=== PATIENT | female | born 1945 | race Caucasian/White ===

== ENCOUNTER → 2019-12-06 | Outpatient (CLI) | payer MEDICARE, OTHER | END | disposition home or self-care (01) | LOC: LABWHC1 12:48 | PROVIDERS: ATTEND Family Medicine | DX: Z11.59 Encounter for screening for other viral diseases (principal) | CPT/HCPCS: U0003; C9803 ==

== ENCOUNTER 2024-03-11 15:00 | Emergency (ER) | payer MEDICARE, OTHER ==
--- NOTE | 2024-03-11 15:17 | ED ---
Headache HPI - General Source: patient, family, RN notes reviewed Mode of arrival: wheelchair Limitations: no limitations <Kady Brown - Last Filed: 03/11/24 15:16> - General Source: patient, family, RN notes reviewed, old records reviewed Mode of arrival: wheelchair Limitations: no limitations - History of Present Illness MD Complaint: headache, "migraine", other (Neck pain) -: days(s) Location: occipital Severity: moderate Severity scale (1-10): 6 Quality: aching Consistency: constant Improves With: nothing Worsens With: none <Kirit Tijerina - Last Filed: 03/12/24 18:44> - General Stated Complaint: L sided neck pain Time Seen by Provider: 03/11/24 15:16 - History of Present Illness Initial Comments: Quick note: 78-year-old female presented to ER for evaluation of a headache x 4 days. Patient states 4 days ago she started to have left-sided neck pain with radiation to her head. She states it is progressively getting worse. No injuries or traumas. She admits to nausea. No fevers or chills. No history of migraines. (Kady Brown) This is a 78-year-old female to the ER for evaluation of headache today headache and neck pain with anxiety (Kirit Tijerina) - Related Data Previous Rx's Medication Instructions Recorded diazePAM [Valium] 5 mg PO TID PRN 3 Days #9 tab 03/11/24 traMADol HCl [Ultram] 50 mg PO Q4HR PRN 3 Days #18 tab 03/11/24 Allergies Allergy/AdvReac Type Severity Reaction Status Date / Time ibuprofen Allergy Rash/Hives Verified 03/11/24 15:16 latex Allergy Unknown Verified 03/11/24 15:16 Review of Systems ROS Other: All systems not noted in ROS Statement are negative. <Kady Brown - Last Filed: 03/11/24 15:16> ROS Other: All systems not noted in ROS Statement are negative. <Kirit Tijerina - Last Filed: 03/12/24 18:44> ROS Statement: Those systems with pertinent positive or pertinent negative responses have been documented in the HPI. Past Medical History Past Medical History: Hypertension Additional Past Medical History / Comment(s): High Cholestrol History of Any Multi-Drug Resistant Organisms: None Reported Past Surgical History: Appendectomy, Cholecystectomy, Orthopedic Surgery Additional Past Surgical History / Comment(s): Back surgery - August ( 8 rods placed) Past Psychological History: No Psychological Hx Reported Smoking Status: Never smoker Past Alcohol Use History: Rare Past Drug Use History: None Reported <Kady Brown - Last Filed: 03/11/24 15:16> General Exam Limitations: no limitations <Kady Brown - Last Filed: 03/11/24 15:16> General appearance: alert, in no apparent distress Head exam: Present: atraumatic, normocephalic, normal inspection Eye exam: Present: normal appearance, PERRL, EOMI. Absent: scleral icterus, conjunctival injection, periorbital swelling ENT exam: Present: normal exam, mucous membranes moist Neck exam: Present: normal inspection. Absent: tenderness, meningismus, lymphadenopathy Respiratory exam: Present: normal lung sounds bilaterally. Absent: respiratory distress, wheezes, rales, rhonchi, stridor Cardiovascular Exam: Present: regular rate, normal rhythm, normal heart sounds. Absent: systolic murmur, diastolic murmur, rubs, gallop, clicks GI/Abdominal exam: Present: soft, normal bowel sounds. Absent: distended, tenderness, guarding, rebound, rigid Extremities exam: Present: normal inspection, full ROM, normal capillary refill. Absent: tenderness, pedal edema, joint swelling, calf tenderness Back exam: Present: normal inspection Neurological exam: Present: alert, oriented X3, CN II-XII intact Psychiatric exam: Present: normal affect, normal mood Skin exam: Present: warm, dry, intact, normal color. Absent: rash <Kirit Tijerina - Last Filed: 03/12/24 18:44> - General Exam Comments Initial Comments: Visual Physical Exam Vital signs reviewed General: Well-appearing, nontoxic, no acute distress. Head: Normocephalic, atraumatic Eyes: PERRLA, EOMI ENT: Airway patent Chest: Nonlabored breathing Skin: No visual rash, normal skin tone Neuro: Alert and oriented 3 Musculoskeletal: No gross abnormalities (Kady Brown) Course <Kirit Tijerina - Last Filed: 03/12/24 18:44> Vital Signs 03/11/24 03/11/24 15:11 19:36 Temperature 98.3 F 97.9 F Pulse Rate 80 68 Respiratory 16 18 Rate Blood Pressure 134/77 123/75 O2 Sat by Pulse 99 95 Oximetry - Reevaluation(s) Reevaluation #1: Medical records reviewed (Kirit Tijerina) Reevaluation #2: Patient symptoms improved (Kirit Tijerina) Reevaluation #3: Patient informed of results and questions answered (Kirit Tijerina) Reevaluation #4: Was pt. sent in by a medical professional or institution (, [facility], FILLING STATION LABORER, urgent care, hospital, or [facility]...) When possible be specific @ -no Did you speak to anyone other than the patient for history (EMS, parent, family, police, friend...)? What history was obtained from this source @ -no Did you review nursing and triage notes (agree or disagree)? Why? @ -agree Are old charts reviewed (outside hosp., previous admission, EMS record, old EKG, old radiological studies, urgent care reports/EKG's, [facility] records)? Report findings @ -yes Differential Diagnosis (chest pain, altered mental status, abdominal pain women, abdominal pain men, vaginal bleeding, weakness, fever, dyspnea, syncope, headache, dizziness, GI bleed, back pain, seizure, CVA, palpatations, mental health, musculoskeletal)? @ -prior EKG interpreted by me (3pts min.). @ -yes X-rays interpreted by me (1pt min.). @ -yes negative for acute disease CT interpreted by me (1pt min.). @ -no U/S interpreted by me (1pt. min.). @ -no What testing was considered but not performed or refused? (CT, X-rays, U/S, labs)? Why? @ -none What meds were considered but not given or refused? Why? @ -none Did you discuss the management of the patient with other professionals (professionals i.e. [facility] Bañuelos, FILLING STATION LAB[employer]ER, lab, RT, psych nurse, social media content manager, director of state, teacher, student liaison officer, binder caser)? Give summary @ -no Was smoking cessation discussed for >3mins.? @ -no Was critical care preformed (if so, how long)? @ -no Were there social determinants of health that impacted care today? How? (Homelessness, low income, unemployed, alcoholism, drug addiction, transportation, low edu. Level, literacy, decrease access to med. care, custodial, rehab)? @ -none Was there de-escalation of care discussed even if they declined (Discuss DNR or withdrawal of care, Hospice)? DNR status @ -no What co-morbidities impacted this encounter? (DM, HTN, Smoking, COPD, CAD, Cancer, CVA, ARF, Chemo, Hep., AIDS, mental health diagnosis, sleep apnea, morbid obesity)? @ -none Was patient admitted / discharged? Hospital course, mention meds given and route, prescriptions, significant lab abnormalities, going to OR and other pertinent info. @ - Undiagnosed new problem with uncertain prognosis? @ -no Drug Therapy requiring intensive monitoring for toxicity (Heparin, Nitro, Insulin, Cardizem)? @ -no Were any procedures done? @ -no Diagnosis/symptom? @ - Acute, or Chronic, or Acute on Chronic? @ -Acute Uncomplicated (without systemic symptoms) or Complicated (systemic symptoms)? @ -Complicated Side effects of treatment? @ -no Exacerbation, Progression, or Severe Exacerbation? @ -exacerbation Poses a threat to life or bodily function? How? (Chest pain, [place], NH, pneumonia, PE, COPD, DKA, ARF, appy, cholecystitis, CVA, Diverticulitis, Homicidal, Suicidal, threat to staff... and all critical care pts) @ -yes (Kirit Tijerina) Reevaluation #5: Differential Headache: Migraine, tension, cluster, carbon monoxide, central venous thrombosis, pension karma temporal arteritis, acute closure glaucoma, intercranial hemorrhage, mastoiditis, sinusitis, head injury, this is not meant to be an all-inclusive list. (Kirit Tijerina) Medical Decision Making <Kady Brown - Last Filed: 03/11/24 15:16> - Lab Data Result diagrams: 03/11/24 15:39 03/11/24 15:59 - Radiology Data Radiology results: report reviewed (CT brain C-spine negative for acute disease), image reviewed <Kirit Tijerina - Last Filed: 03/12/24 18:44> - Medical Decision Making I performed the quick note portion of this chart. Electronically signed by Kady Brown PA-C (Kady Brown) 78 female for headache neck pain anxiety, patient symptoms improved here in the ER and can be discharged home (Kirit Tijerina) - Lab Data Lab Results 03/11/24 03/11/24 Range/Units 15:39 15:59 WBC 10.9 H (3.8-10.6) k/uL RBC 3.46 L (3.80-5.40) m/uL Hgb 10.3 L (11.4-16.0) gm/dL Hct 31.8 L (34.0-46.0) % MCV 91.8 (80.0-100.0) fL MCH 29.7 (25.0-35.0) pg MCHC 32.4 (31.0-37.0) g/dL RDW 13.9 (11.5-15.5) % Plt Count 346 (150-450) k/uL MPV 7.7 Neutrophils % 82 % Lymphocytes % 11 % Monocytes % 6 % Eosinophils % 1 % Basophils % 0 % Neutrophils # 8.9 H (1.3-7.7) k/uL Lymphocytes # 1.2 (1.0-4.8) k/uL Monocytes # 0.7 (0-1.0) k/uL Eosinophils # 0.1 (0-0.7) k/uL Basophils # 0.0 (0-0.2) k/uL Sodium 138 (137-145) mmol/L Potassium 4.5 (3.5-5.1) mmol/L Chloride 107 (98-107) mmol/L Carbon Dioxide 24 (22-30) mmol/L Anion Gap 7 mmol/L BUN 27 H (7-17) mg/dL Creatinine 1.59 H (0.52-1.04) mg/dL Est GFR (CKD-EPI)AfAm 36 (>60 ml/min/1.73 sqM) Est GFR (CKD-EPI)NonAf 31 (>60 ml/min/1.73 sqM) Glucose 101 H (74-99) mg/dL Calcium 10.2 (8.4-10.2) mg/dL Total Bilirubin 0.9 (0.2-1.3) mg/dL AST 22 (14-36) U/L ALT 13 (4-34) U/L Alkaline Phosphatase 131 H (38-126) U/L Total Protein 7.3 (6.3-8.2) g/dL Albumin 4.0 (3.5-5.0) g/dL Disposition <Kady Brown - Last Filed: 03/11/24 15:16> Is patient prescribed a controlled substance at d/c from ED?: No Time of Disposition: 18:20 <Kirit Tijerina - Last Filed: 03/12/24 18:44> Clinical Impression: Strain of neck muscle Disposition: HOME SELF-CARE Condition: Good Instructions (If sedation given, give patient instructions): Cervical Strain (ED), Cervical Sprain (ED) Prescriptions: traMADol HCl [Ultram] 50 mg PO Q4HR PRN 3 Days #18 tab PRN Reason: Pain Control diazePAM [Valium] 5 mg PO TID PRN 3 Days #9 tab PRN Reason: Mild Spasms Referrals: Giovanni Estrada MD [Primary Care Provider] - 1-2 days Minor Najera DO [Doctor of Osteopathic Medicine] - 1-2 days
[2024-03-11 16:07] LABS: Basophils % (A) 0 %; Eosinophils # (A) 0.1 k/uL (0-0.7); Eosinophils % (A) 1 %; HCT 31.8 % (34.0-46.0); HGB 10.3 gm/dL (11.4-16.0); Lymphocytes # (A) 1.2 k/uL (1.0-4.8); Lymphocytes % (A) 11 %; MCH 29.7 pg (25.0-35.0); MCHC 32.4 g/dL (31.0-37.0); MCV 91.8 fL (80.0-100.0); Mean Platelet Volume 7.7; Monocytes # (A) 0.7 k/uL (0-1.0); Monocytes % (A) 6 %; Neutrophils # (A) 8.9 k/uL (1.3-7.7); Neutrophils % (A) 82 %; Platelet Count 346 k/uL (150-450); RBC 3.46 m/uL (3.80-5.40); RDW 13.9 % (11.5-15.5); WBC 10.9 k/uL (3.8-10.6)
--- NOTE | 2024-03-11 16:40 | CT ---
EXAMINATION TYPE: CT brain bernardo castillo DATE OF EXAM: 03/11/2024 COMPARISON: None CLINICAL INDICATION: Female, 78 years old with history of headache x 4days; PHH, HEADACHE/FAMILY HX A NUERYSM TECHNIQUE: CT scan of the head and cervical spine are performed without contrast. CT DLP: [address] CTDI: mGy Automated exposure control for dose reduction was used. Findings: Head CT: Ventricles, basal cisterns and sulci over convexities are mildly enlarged consistent with mild genera lized atrophy appropriate for the patient's age. There is no mass, mass effect or shift of midline st ructures. No abnormal density is seen throughout the brain parenchyma and there is no acute intra or extra-axia l hemorrhage. Posterior fossa including the brainstem, fourth ventricle and cerebellar pontine angles are grossly n ormal. The intraorbital contents appear normal and symmetric. Visualized paranasal sinuses are well aerated. CT cervical spine: Craniovertebral junction relationships and prevertebral soft tissues are normal. The cervical vertebral segments are normal in height and alignment and there is no fracture subluxati on. There are postsurgical changes of anterior metallic and interbody fusion of C4, C5, C6 and C7. The C2 -3 and C3-4 disks are well-preserved. The facet joints are intact. There is moderate osteoarthritic change of the vertebral joints in the m id and lower cervical spine. The bony cervical canal is widely patent and there is no bony encroachment of the neural foramina. The paraspinal soft tissues unremarkable. IMPRESSION: 1. Head CT: No acute bleed or mass effect. Mild age-appropriate atrophy. 2. CT cervical spine: No acute trauma. Cervical fusion from C4 through C7 [facility], , 03/11/2024 4:38 PM
[2024-03-11 18:12] LABS: ALT 13 U/L (4-34); AST 22 U/L (14-36); African American GFR (CKD) 36 (>60 ml/min/1.73 sqM); Alkaline Phosphatase 131 U/L (38-126); Anion Gap 7 mmol/L; Blood Urea Nitrogen 27 mg/dL (7-17); Calcium 10.2 mg/dL (8.4-10.2); Carbon Dioxide 24 mmol/L (22-30); Chloride 107 mmol/L (98-107); Glucose 101 mg/dL (74-99); Non-African American GFR(CKD) 31 (>60 ml/min/1.73 sqM); Potassium 4.5 mmol/L (3.5-5.1); Sodium 138 mmol/L (137-145); Total Bilirubin 0.9 mg/dL (0.2-1.3); Total Protein 7.3 g/dL (6.3-8.2)
[2024-03-11 19:37] VITALS: BP 123/75; PULSE 68; RESP 18; TEMP 97.9
[2024-03-11] MEDS: ACETAMINOPHEN TAB 500 MG TAB PO STA (19:38)
[2024-03-11] MEDS: diazePAM 5 MG TAB PO STA (19:39)
[2024-03-11] MEDS: ONDANSETRON 4 MG ODT STARTER PACK 2 TAB BTL PO STA (19:40)
[2024-03-11] MEDS: traMADol 50 MG TAB PO STA (19:40)
[2024-03-11] MEDS: traMADol 50 MG STARTER PACK 3 TAB BTL PO STA (19:41)
== END 2024-03-11 20:03 | disposition home or self-care (01) ==
LOC: EC 15:00
DX: S16.1XXA Strain of muscle, fascia and tendon at neck level, initial encounter (principal); X58.XXXA Exposure to other specified factors, initial encounter
CPT/HCPCS: 36415; 80053; 85025; 72125; 70450; 99284; S0119

== ENCOUNTER 2024-09-26 18:04 | Inpatient (IN) | payer MEDICARE, OTHER ==
[2024-09-26 18:25] LABS: Glucose,Whole Blood 83 mg/dL (70-110)
[2024-09-26] MEDS: SODIUM CHLORIDE 0.9% 500 ML 500 ML IV ONE (19:17)
--- NOTE | 2024-09-26 20:21 | XR ---
EXAMINATION TYPE: XR chest 2V DATE OF EXAM: 09/26/2024 8:14 PM COMPARISON: None TECHNIQUE: XR chest 2V Frontal and lateral views of the chest. CLINICAL INDICATION:Female, 79 years old with history of altered mental status; FINDINGS: Lungs/Pleura: There is no evidence of pleural effusion, focal consolidation, or pneumothorax. Bibasi lar linear atelectasis. Pulmonary vascularity: Unremarkable. Heart/mediastinum: Cardiomediastinal silhouette is unremarkable. Atherosclerotic calcifications are seen in the aorta. Musculoskeletal: Multiple level degenerative disc disease changes seen throughout the spine. Dextro s clerotic curvature of the thoracolumbar spine. Partial visualization of cervical and lumbar fusion swartz rdware. Other: Cholecystectomy clips noted in the right upper quadrant. IMPRESSION: Bibasilar linear atelectasis without evidence for focal consolidation. [facility], , 09/26/2024 8:19 PM
[2024-09-26 20:41] LABS: Bacteria,Urine Occasional /hpf; Bilirubin,Urine Negative (Negative); Blood,Urine Trace (Negative); Color,Urine Colorless; Glucose,Urine (UA) Negative (Negative); Hyaline Casts,Urine 3 /lpf (0-2); Ketones,Urine Negative (Negative); Leukocyte Esterase,Urine Large (Negative); Mucus,Urine Rare /hpf; Nitrite,Urine Negative (Negative); PH, Urine 5.0 (5.0-8.0); Protein,Urine Negative (Negative); RBC,Urine 15 /hpf (0-5); Specific Gravity,Urine 1.009 (1.001-1.035); Squamous Epithelial Cell,Urine 1 /hpf (0-4); Urobilinogen,Urine <2.0 mg/dL (<2.0); WBC,Urine 11 /hpf (0-5)
--- NOTE | 2024-09-26 20:41 | CT ---
EXAMINATION TYPE: CT brain wo con CT DLP: 1227.4 mGycm, Automated exposure control for dose reduction was used. DATE OF EXAM: 09/26/2024 8:27 PM COMPARISON: CT brain C-spine 03/11/2024 CLINICAL INDICATION:Female, 79 years old with history of Altered mental status, AMS TECHNIQUE: Brain: Multiple axial CT images of the brain were obtained without IV contrast. . Coronal and sagitta l reformats reviewed. FINDINGS: Brain: Extra-axial spaces: No abnormal extra-axial fluid collections. Ventricular system: Within normal limits Cerebral parenchyma: No acute intraparenchymal hemorrhage or mass effect. The vela-white junction is well differentiated. Cerebellum: Unremarkable. Mass effect: No evidence of midline shift. Intracranial vasculature: Atherosclerotic calcifications of the intracranial vessels. Soft tissues: Normal. Calvarium/osseous structures: No depressed skull fracture. Benign hyperostosis frontalis noted. Paranasal sinuses and mastoid air cells: Mastoid air cells are clear. Mucous retention cyst within th e right frontal sinus measuring 1.4 cm. Remaining paranasal sinuses are clear. Visualized orbits: Bilateral aphakia IMPRESSION: No acute intracranial process. [facility], , 09/26/2024 8:38 PM
[2024-09-26 20:51] LABS: Barbiturate Screen,Urine Not Detected (NotDetected); Benzodiazepines Screen,Urine Not Detected (NotDetected); Opiate Screen,Urine Not Detected (NotDetected); Oxycodone Screen, Urine Detected (NotDetected); Phencyclidine Screen,Urine Not Detected (NotDetected); Tricyclic Antidepressant,Urine Not Detected (NotDetected); Urn Cannabinoid Scrn Not Detected (NotDetected)
[2024-09-26 20:59] LABS: ALT 20 U/L (4-34); AST 40 U/L (14-36); Acetaminophen <10.0 ug/mL; African American GFR (CKD) 35 (>60 ml/min/1.73 sqM); Albumin 3.5 g/dL (3.5-5.0); Alkaline Phosphatase 111 U/L (38-126); Anion Gap 15 mmol/L; Blood Urea Nitrogen 43 mg/dL (7-17); Calcium 9.5 mg/dL (8.4-10.2); Carbon Dioxide 18 mmol/L (22-30); Chloride 105 mmol/L (98-107); Glucose 78 mg/dL (74-99); Non-African American GFR(CKD) 30 (>60 ml/min/1.73 sqM); Potassium 4.4 mmol/L (3.5-5.1); Salicylate <1.0 mg/dL; Sodium 138 mmol/L (137-145); Total Protein 6.1 g/dL (6.3-8.2)
[2024-09-26 21:05] LABS: Basophils # (A) 0.02 10*3/uL (0.00-0.10); Basophils % (A) 0.2 %; Eosinophils # (A) 0.01 10*3/uL (0.04-0.35); Eosinophils % (A) 0.1 %; HCT 31.2 % (37.2-46.3); HGB 10.4 g/dL (12.0-15.0); Lymphocytes # (A) 0.87 10*3/uL (0.90-5.00); Lymphocytes % (A) 9.6 %; MCH 31.5 pg (27.0-32.0); MCHC 33.3 g/dL (32.0-37.0); MCV 94.5 fL (80.0-97.0); Monocytes # (A) 0.54 10*3/uL (0.20-1.00); Monocytes % (A) 6.0 %; Neutrophils # (A) 7.58 10*3/uL (1.80-7.70); Neutrophils % (A) 83.7 %; Platelet Count 243 10*3/uL (140-440); RBC 3.30 10*6/uL (4.10-5.20); RDW 13.7 % (11.5-14.5); WBC 9.06 10*3/uL (4.50-10.00)
[2024-09-26 21:14] LABS: INR 1.0 (<1.2); Partial Thromboplastin Time 22.1 sec (22.0-30.0); Prothrombin Time 11.1 sec (10.0-12.5)
--- NOTE | 2024-09-26 21:30 | ED ---
General Adult HPI - General Chief complaint: Altered Mental Status Stated complaint: AMS Time Seen by Provider: 09/26/24 18:10 Source: patient Mode of arrival: EMS Limitations: no limitations - History of Present Illness Initial comments: 79-year-old female with past medical history of hypertension, high cholesterol, chronic back pain after surgery in August who presents to the emergency department with altered mental status. Daughter is at bedside and provides a history. States that the patient recently came to live with her. Today the patient seemed confused at home this afternoon. Daughter states that she spilled her pills all over the ground several times. Patient has had diarrhea over the past couple of days and has not been eating much. Patient did soil herself before coming into the emergency department. EMS found the patient on scene with a glucose of 50. They did give her an amp of dextrose which brought the patient's glucose up to 105. She was following commands and talking to EMS however upon arrival to our hospital the patient does not provide much history. She denies any chest pain or shortness of breath. No abdominal pain. No black or bloody stools. No other alleviating, precipitating or modifying factors - Related Data Home Medications Medication Instructions Recorded Confirmed Atorvastatin [Lipitor] 20 mg PO HS 09/26/24 09/26/24 Celecoxib [CeleBREX] 100 mg PO BID 09/26/24 09/26/24 Gabapentin [Neurontin] 200 mg PO DAILY 09/26/24 09/26/24 Levothyroxine Sodium 25 mcg PO DAILY 09/26/24 09/26/24 Oxybutynin ER [Ditropan XL] 20 mg PO DAILY 09/26/24 09/26/24 Pantoprazole [Protonix] 40 mg PO DAILY 09/26/24 09/26/24 QUEtiapine [SEROquel] 25 mg PO HS 09/26/24 09/26/24 hydroCHLOROthiazide [Hydrodiuril] 25 mg PO DAILY 09/26/24 09/26/24 lisinopriL [Zestril] 20 mg PO DAILY 09/26/24 09/26/24 tiZANidine [Zanaflex] 4 mg PO BID 09/26/24 09/26/24 Allergies Allergy/AdvReac Type Severity Reaction Status Date / Time ibuprofen Allergy Rash/Hives Verified 09/26/24 20:48 latex Allergy Unknown Verified 09/26/24 20:48 Review of Systems ROS Statement: Those systems with pertinent positive or pertinent negative responses have been documented in the HPI. ROS Other: All systems not noted in ROS Statement are negative. Past Medical History Past Medical History: Hypertension Additional Past Medical History / Comment(s): High Cholestrol History of Any Multi-Drug Resistant Organisms: None Reported Past Surgical History: Appendectomy, Cholecystectomy, Orthopedic Surgery Additional Past Surgical History / Comment(s): Back surgery - August ( 8 rods placed) Past Psychological History: No Psychological Hx Reported Smoking Status: Never smoker Past Alcohol Use History: Rare Past Drug Use History: None Reported General Exam Limitations: altered mental status General appearance: lethargic Head exam: Present: atraumatic, normocephalic, normal inspection Eye exam: Present: normal appearance, PERRL, EOMI. Absent: scleral icterus, conjunctival injection, periorbital swelling ENT exam: Present: mucous membranes moist Respiratory exam: Present: normal lung sounds bilaterally. Absent: respiratory distress, wheezes, rales, rhonchi, stridor Cardiovascular Exam: Present: regular rate, normal rhythm, normal heart sounds. Absent: systolic murmur, diastolic murmur, rubs, gallop, clicks GI/Abdominal exam: Present: soft, normal bowel sounds. Absent: distended, tenderness, guarding, rebound, rigid Neurological exam: Present: altered Psychiatric exam: Present: flat affect Course Vital Signs 09/26/24 09/26/24 09/26/24 18:08 20:27 22:00 Temperature 97.5 F L Pulse Rate 68 55 L 56 L Respiratory 17 12 15 Rate Blood Pressure 140/74 127/70 121/57 O2 Sat by Pulse 97 100 98 Oximetry 09/26/24 23:53 Temperature Pulse Rate 61 Respiratory 18 Rate Blood Pressure 101/81 O2 Sat by Pulse 97 Oximetry Medical Decision Making - Medical Decision Making Was pt. sent in by a medical professional or institution (, PA, TECHNICAL SALES REPRESENTATIVES, urgent care, hospital, or [facility]...) When possible be specific @ -No Did you speak to anyone other than the patient for history (EMS, parent, family, police, friend...)? What history was obtained from this source @ -Spoke with the daughter for history Did you review nursing and triage notes (agree or disagree)? Why? @ -I reviewed and agree with nursing and triage notes Were old charts reviewed (outside hosp., previous admission, EMS record, old EKG, old radiological studies, urgent care reports/EKG's, [facility] records)? Report findings @ -No old charts were reviewed Differential Diagnosis (chest pain, altered mental status, abdominal pain women, abdominal pain men, vaginal bleeding, weakness, fever, dyspnea, syncope, headache, dizziness, GI bleed, back pain, seizure, CVA, palpatations, mental health, musculoskeletal)? @ -Differential Altered Mental Status: Hypoglycemia, DKA, hypercapnia, ETOH, overdose, CO poisoning, trauma, myxedema coma, HTN encephalopathy, infection, encephalitis, psychosis, intercranial hemorrhage, hepatic encephalopathy, meningitis, CVA, this is not meant to be an all-inclusive list EKG interpreted by me (3pts min.). @ -Yes which demonstrates sinus rhythm with a rate of 62. OK interval 165. QRS 89. QTc of 447. No acute ST segment elevations or depressions X-rays interpreted by me (1pt min.). @ -Yes which demonstrates atelectasis CT interpreted by me (1pt min.). @ -Yes which does not demonstrate any acute process U/S interpreted by me (1pt. min.). @ -None done What testing was considered but not performed or refused? (CT, X-rays, U/S, labs)? Why? @ -None What meds were considered but not given or refused? Why? @ -None Did you discuss the management of the patient with other professionals (pro fessionals i.e. , PA, TECHNICAL SALES REPRESENTATIVES, lab, RT, psych nurse, social services counselor, product safety head, teacher, credit control officer, case resource manager)? Give summary @ -Spoke with Dr. Alonso for the admission Was smoking cessation discussed for >3mins.? @ -No Was critical care preformed (if so, how long)? @ -No Were there social determinants of health that impacted care today? How? (Homelessness, low income, unemployed, alcoholism, drug addiction, transportation, low edu. Level, literacy, decrease access to med. care, custodial, rehab)? @ -No Was there de-escalation of care discussed even if they declined (Discuss DNR or withdrawal of care, Hospice)? DNR status @ -No What co-morbidities impacted this encounter? (DM, HTN, Smoking, COPD, CAD, Cancer, CVA, ARF, Chemo, Hep., AIDS, mental health diagnosis, sleep apnea, morbid obesity)? @ -Chronic back pain Was patient admitted / discharged? Hospital course, mention meds given and route, prescriptions, significant lab abnormalities, going to OR and other pertinent info. @ -Upon arrival patient seen and evaluated in bed 22. Thorough history and physical exam was performed. Patient will not answer any questions however she does mildly arouse to painful stimuli. Patient does flinch when I attempt to look into her eyes. She also pushes me away with her left hand when attempting to do strength testing. IV is established. Laboratory studies are conducted. Twelve-lead EKG was performed. Laboratory studies do reveal a UTI. Patient was given a dose of Rocephin. She was monitored in the emergency department for several hours and does have improvement in her mentation. I am concerned that the patient may have overdosed on some of her medications. At this time the patient will be admitted to Dr. Alonso. She will be placed on antibiotics. I will hold several of her sedating medications. Spoke with Dr. Alonso for the admission Undiagnosed new problem with uncertain prognosis? @ -No Drug Therapy requiring intensive monitoring for toxicity (Heparin, Nitro, Insulin, Cardizem)? @ -No Were any procedures done? @ -No Diagnosis/symptom? @ -Acute encephalopathy, acute UTI, possible medication overdose Acute, or Chronic, or Acute on Chronic? @ -Acute Uncomplicated (without systemic symptoms) or Complicated (systemic symptoms)? @ -Complicated Side effects of treatment? @ -No Exacerbation, Progression, or Severe Exacerbation? @ -No Poses a threat to life or bodily function? How? (Chest pain, [place], [place], pneumonia, PE, COPD, DKA, ARF, appy, cholecystitis, CVA, Diverticulitis, Homicidal, Suicidal, threat to staff... and all critical care pts) @ -No - Lab Data Result diagrams: 09/26/24 20:49 09/26/24 19:14 Lab Results 09/26/24 09/26/24 09/26/24 Range/Units 18:20 19:14 19:14 WBC (4.50-10.00) 10*3/uL RBC (4.10-5.20) 10*6/uL Hgb (12.0-15.0) g/dL Hct (37.2-46.3) % MCV (80.0-97.0) fL MCH (27.0-32.0) pg MCHC (32.0-37.0) g/dL Plt Count (140-440) 10*3/uL MPV (9.5-12.2) fL Immature Gran % (Auto) % Neutrophils % % Lymphocytes % % Monocytes % % Eosinophils % % Basophils % % Immature Gran # (0.00-0.04) 10*3/uL Neutrophils # (1.80-7.70) 10*3/uL Lymphocytes # (0.90-5.00) 10*3/uL Monocytes # (0.20-1.00) 10*3/uL Eosinophils # (0.04-0.35) 10*3/uL Basophils # (0.00-0.10) 10*3/uL PT (10.0-12.5) sec INR (<1.2) APTT (22.0-30.0) sec Sodium 138 (137-145) mmol/L Potassium 4.4 (3.5-5.1) mmol/L Chloride 105 (98-107) mmol/L Carbon Dioxide 18 L (22-30) mmol/L Anion Gap 15 mmol/L BUN 43 H (7-17) mg/dL Creatinine 1.61 H (0.52-1.04) mg/dL Est GFR (CKD-EPI)AfAm 35 (>60 ml/min/1.73 sqM) Est GFR (CKD-EPI)NonAf 30 (>60 ml/min/1.73 sqM) Glucose 78 (74-99) mg/dL POC Glucose (mg/dL) 83 (70-110) mg/dL POC Glu Yard Inspector ID Marinozzchyna Lelo Calcium 9.5 (8.4-10.2) mg/dL Total Bilirubin 0.5 (0.2-1.3) mg/dL AST 40 H (14-36) U/L ALT 20 (4-34) U/L Alkaline Phosphatase 111 (38-126) U/L Troponin I 0.023 (0.000-0.034) ng/mL Total Protein 6.1 L (6.3-8.2) g/dL Albumin 3.5 (3.5-5.0) g/dL TSH 0.921 (0.465-4.680) mIU/L Urine Color Urine Appearance (Clear) Urine pH (5.0-8.0) Ur Specific [place] (1.001-1.035) Urine Protein (Negative) Urine Glucose (UA) (Negative) Urine Ketones (Negative) Urine Blood (Negative) Urine Nitrite (Negative) Urine Bilirubin (Negative) Urine Urobilinogen (<2.0) mg/dL Ur Leukocyte Esterase (Negative) Urine RBC (0-5) /hpf Urine WBC (0-5) /hpf Ur Squamous Epith Cells (0-4) /hpf Urine Bacteria (None) /hpf Hyaline Casts (0-2) /lpf Urine Mucus (None) /hpf Salicylates <1.0 mg/dL Urine Opiates Screen (NotDetected) Ur Oxycodone Screen (NotDetected) Urine Methadone Screen (NotDetected) Acetaminophen <10.0 ug/mL Ur Barbiturates Screen (NotDetected) U Tricyclic Antidepress (NotDetected) Ur Phencyclidine Scrn (NotDetected) Ur Amphetamines Screen (NotDetected) U Methamphetamines Scrn (NotDetected) U Benzodiazepines Scrn (NotDetected) Urine Cocaine Screen (NotDetected) U Marijuana (THC) Screen (NotDetected) Serum Alcohol <10 mg/dL 09/26/24 09/26/24 09/26/24 Range/Units 20:03 20:03 20:49 WBC 9.06 (4.50-10.00) 10*3/uL RBC 3.30 L (4.10-5.20) 10*6/uL Hgb 10.4 L (12.0-15.0) g/dL Hct 31.2 L (37.2-46.3) % MCV 94.5 (80.0-97.0) fL MCH 31.5 (27.0-32.0) pg MCHC 33.3 (32.0-37.0) g/dL Plt Count 243 (140-440) 10*3/uL MPV 9.9 (9.5-12.2) fL Immature Gran % (Auto) 0.4 % Neutrophils % 83.7 % Lymphocytes % 9.6 % Monocytes % 6.0 % Eosinophils % 0.1 % Basophils % 0.2 % Immature Gran # 0.04 (0.00-0.04) 10*3/uL Neutrophils # 7.58 (1.80-7.70) 10*3/uL Lymphocytes # 0.87 L (0.90-5.00) 10*3/uL Monocytes # 0.54 (0.20-1.00) 10*3/uL Eosinophils # 0.01 L (0.04-0.35) 10*3/uL Basophils # 0.02 (0.00-0.10) 10*3/uL PT (10.0-12.5) sec INR (<1.2) APTT (22.0-30.0) sec Sodium (137-145) mmol/L Potassium (3.5-5.1) mmol/L Chloride (98-107) mmol/L Carbon Dioxide (22-30) mmol/L Anion Gap mmol/L BUN (7-17) mg/dL Creatinine (0.52-1.04) mg/dL Est GFR (CKD-EPI)AfAm (>60 ml/min/1.73 sqM) Est GFR (CKD-EPI)NonAf (>60 ml/min/1.73 sqM) Glucose (74-99) mg/dL POC Glucose (mg/dL) (70-110) mg/dL POC Glu Yard Inspector ID Calcium (8.4-10.2) mg/dL Total Bilirubin (0.2-1.3) mg/dL AST (14-36) U/L ALT (4-34) U/L Alkaline Phosphatase (38-126) U/L Troponin I (0.000-0.034) ng/mL Total Protein (6.3-8.2) g/dL Albumin (3.5-5.0) g/dL TSH (0.465-4.680) mIU/L Urine Color Colorless Urine Appearance Cloudy H (Clear) Urine pH 5.0 (5.0-8.0) Ur Specific [place] 1.009 (1.001-1.035) Urine Protein Negative (Negative) Urine Glucose (UA) Negative (Negative) Urine Ketones Negative (Negative) Urine Blood Trace H (Negative) Urine Nitrite Negative (Negative) Urine Bilirubin Negative (Negative) Urine Urobilinogen <2.0 (<2.0) mg/dL Ur Leukocyte Esterase Large H (Negative) Urine RBC 15 H (0-5) /hpf Urine WBC 11 H (0-5) /hpf Ur Squamous Epith Cells 1 (0-4) /hpf Urine Bacteria Occasional H (None) /hpf Hyaline Casts 3 H (0-2) /lpf Urine Mucus Rare H (None) /hpf Salicylates mg/dL Urine Opiates Screen Not Detected (NotDetected) Ur Oxycodone Screen Detected H (NotDetected) Urine Methadone Screen Not Detected (NotDetected) Acetaminophen ug/mL Ur Barbiturates Screen Not Detected (NotDetected) U Tricyclic Antidepress Not Detected (NotDetected) Ur Phencyclidine Scrn Not Detected (NotDetected) Ur Amphetamines Screen Not Detected (NotDetected) U Methamphetamines Scrn Not Detected (NotDetected) U Benzodiazepines Scrn Not Detected (NotDetected) Urine Cocaine Screen Not Detected (NotDetected) U Marijuana (THC) Screen Not Detected (NotDetected) Serum Alcohol mg/dL 09/26/24 09/26/24 Range/Units 20:49 22:03 WBC (4.50-10.00) 10*3/uL RBC (4.10-5.20) 10*6/uL Hgb (12.0-15.0) g/dL Hct (37.2-46.3) % MCV (80.0-97.0) fL MCH (27.0-32.0) pg MCHC (32.0-37.0) g/dL Plt Count (140-440) 10*3/uL MPV (9.5-12.2) fL Immature Gran % (Auto) % Neutrophils % % Lymphocytes % % Monocytes % % Eosinophils % % Basophils % % Immature Gran # (0.00-0.04) 10*3/uL Neutrophils # (1.80-7.70) 10*3/uL Lymphocytes # (0.90-5.00) 10*3/uL Monocytes # (0.20-1.00) 10*3/uL Eosinophils # (0.04-0.35) 10*3/uL Basophils # (0.00-0.10) 10*3/uL PT 11.1 (10.0-12.5) sec INR 1.0 (<1.2) APTT 22.1 (22.0-30.0) sec Sodium (137-145) mmol/L Potassium (3.5-5.1) mmol/L Chloride (98-107) mmol/L Carbon Dioxide (22-30) mmol/L Anion Gap mmol/L BUN (7-17) mg/dL Creatinine (0.52-1.04) mg/dL Est GFR (CKD-EPI)AfAm (>60 ml/min/1.73 sqM) Est GFR (CKD-EPI)NonAf (>60 ml/min/1.73 sqM) Glucose (74-99) mg/dL POC Glucose (mg/dL) 115 H (70-110) mg/dL POC Glu Yard Inspector ID Larry Lind Calcium (8.4-10.2) mg/dL Total Bilirubin (0.2-1.3) mg/dL AST (14-36) U/L ALT (4-34) U/L Alkaline Phosphatase (38-126) U/L Troponin I (0.000-0.034) ng/mL Total Protein (6.3-8.2) g/dL Albumin (3.5-5.0) g/dL TSH (0.465-4.680) mIU/L Urine Color Urine Appearance (Clear) Urine pH (5.0-8.0) Ur Specific [place] (1.001-1.035) Urine Protein (Negative) Urine Glucose (UA) (Negative) Urine Ketones (Negative) Urine Blood (Negative) Urine Nitrite (Negative) Urine Bilirubin (Negative) Urine Urobilinogen (<2.0) mg/dL Ur Leukocyte Esterase (Negative) Urine RBC (0-5) /hpf Urine WBC (0-5) /hpf Ur Squamous Epith Cells (0-4) /hpf Urine Bacteria (None) /hpf Hyaline Casts (0-2) /lpf Urine Mucus (None) /hpf Salicylates mg/dL Urine Opiates Screen (NotDetected) Ur Oxycodone Screen (NotDetected) Urine Methadone Screen (NotDetected) Acetaminophen ug/mL Ur Barbiturates Screen (NotDetected) U Tricyclic Antidepress (NotDetected) Ur Phencyclidine Scrn (NotDetected) Ur Amphetamines Screen (NotDetected) U Methamphetamines Scrn (NotDetected) U Benzodiazepines Scrn (NotDetected) Urine Cocaine Screen (NotDetected) U Marijuana (THC) Screen (NotDetected) Serum Alcohol mg/dL Disposition Clinical Impression: Acute encephalopathy, UTI (urinary tract infection) Disposition: ADMITTED IP TO THIS HOSP Condition: Stable Is patient prescribed a controlled substance at d/c from ED?: No Time of Disposition: 22:50 Decision to Admit Reason: Admit from EC Decision Date: 09/26/24 Decision Time: 22:50
[2024-09-26 22:06] LABS: Glucose,Whole Blood 115 mg/dL (70-110)
[2024-09-26] MEDS: cefTRIAXone IN SWFI 1,000 MG/10 ML SYRINGE IVP STA (22:08)
[2024-09-26] MEDS ORDERED: NALOXONE 0.4 MG/ML 1 ML VIAL IV PRN (22:50)
[2024-09-26] MEDS: QUEtiapine 25 MG TAB PO SCH (23:46)
[2024-09-26] MEDS: ATORVASTATIN 20 MG TAB PO SCH (23:46)
[2024-09-26] MEDS: MELOXICAM 7.5 MG TAB PO SCH (23:46)
[2024-09-26] MEDS: SODIUM CHLORIDE 0.9% 1,000 ML IV SCH (23:47)
[2024-09-27 05:12] LABS: Basophils # (A) 0.02 10*3/uL (0.00-0.10); Basophils % (A) 0.2 %; Eosinophils # (A) 0.04 10*3/uL (0.04-0.35); Eosinophils % (A) 0.4 %; HCT 32.0 % (37.2-46.3); HGB 10.4 g/dL (12.0-15.0); Lymphocytes # (A) 1.29 10*3/uL (0.90-5.00); Lymphocytes % (A) 14.0 %; MCH 31.3 pg (27.0-32.0); MCHC 32.5 g/dL (32.0-37.0); MCV 96.4 fL (80.0-97.0); Monocytes # (A) 0.61 10*3/uL (0.20-1.00); Monocytes % (A) 6.6 %; Neutrophils # (A) 7.24 10*3/uL (1.80-7.70); Neutrophils % (A) 78.6 %; Platelet Count 246 10*3/uL (140-440); RBC 3.32 10*6/uL (4.10-5.20); RDW 13.9 % (11.5-14.5); WBC 9.22 10*3/uL (4.50-10.00)
[2024-09-27 05:30] LABS: African American GFR (CKD) 32 (>60 ml/min/1.73 sqM); Anion Gap 15 mmol/L; Blood Urea Nitrogen 42 mg/dL (7-17); Calcium 8.7 mg/dL (8.4-10.2); Carbon Dioxide 17 mmol/L (22-30); Chloride 108 mmol/L (98-107); Non-African American GFR(CKD) 27 (>60 ml/min/1.73 sqM); Potassium 4.4 mmol/L (3.5-5.1); Sodium 140 mmol/L (137-145)
[2024-09-27] MEDS: LEVOTHYROXINE 25 MCG TAB PO SCH (05:34)
[2024-09-27 06:17] LABS: Glucose 35 mg/dL (74-99)
[2024-09-27 06:21] LABS: Glucose,Whole Blood 34 mg/dL (70-110)
[2024-09-27 06:46] LABS: Glucose,Whole Blood 40 mg/dL (70-110)
[2024-09-27] MEDS: DEXTROSE 50% SYRINGE 50 ML IVP PRN (06:52)
[2024-09-27 07:15] LABS: Glucose,Whole Blood 107 mg/dL (70-110)
[2024-09-27] MEDS: GABAPENTIN 100 MG CAP PO SCH (09:01)
[2024-09-27] MEDS: PANTOPRAZOLE 40 MG TABLET PO SCH (09:02)
[2024-09-27] MEDS: OXYBUTYNIN 10 MG TAB.ER.24 PO SCH (09:02)
[2024-09-27 11:07] LABS: Glucose,Whole Blood 102 mg/dL (70-110)
[2024-09-27] MEDS: ENOXAPARIN 40 MG/0.4 ML SYRINGE SQ SCH (13:33)
[2024-09-27 16:47] LABS: Glucose,Whole Blood 88 mg/dL (70-110)
[2024-09-27] MEDS ORDERED: Acetaminophen-Codeine 300-30mg TAB PO PRN (18:18)
--- NOTE | 2024-09-27 18:22 | P.HPIM ---
History of Present Illness H&P Date: 09/27/24 Chief Complaint: Altered mentation Pleasant 79-year-old patient, follows with Dr. Giovanni Estrada. Chronic medical conditions include hypertension, hypercholesterolemia. Patient also had surgery of the lumbar spine in August of this year. Has pain from the same. Patient was brought into the ER with altered mentation with patient's daughter at the bedside. The daughter provided history to the ER physician that the patient has recently come to live with her. Patient is found to be confused at home in the afternoon. Several pills were spilled all over the ground. Last couple of days some diarrhea was reported with not eating much. Also patient was found to have a glucose of 50. By the EMS. When I started talking to patient she started tearing up and crying. She said she took extra pills on purpose tried to kill herself. She also has discovered apparently that her ex- had a girlfriend for some time. And she does not want to live with the daughter. She knows her options are limited. Patient is oriented and able to give me history. Her lunch was served but she is not much hungry. Denies any fever and chills. Does use a cane. Review of systems: GEN.: Decreased appetite EYES: None HEENT: None NECK: None RESPIRATORY: None CARDIOVASCULAR: None GASTROINTESTINAL: None GENITOURINARY: None MUSCULOSKELETAL: Low back pain LYMPHATICS: None HEMATOLOGICAL: None PSYCHIATRY: Depressed tearful NEUROLOGICAL: None Social history: Non-smoker. Alcohol rarely. Currently living with a daughter. Physical examination: VITAL SIGNS: 97.2, 56, 16, 92/56, 96% room air GENERAL: BMI 25, sitting up in bed awake tearful. EYES: Pupils equal. Conjunctiva candido l. HEENT: External appearance of nose and ears normal, oral cavity grossly normal. NECK: JVD not raised; masses not palpable. HEART: First and second heart sounds are normal; no edema. LUNGS: Respiratory rate normal; clear to auscultation. ABDOMEN: Soft, nontender, liver spleen not palpable, no masses palpable. PSYCH: Alert and oriented x3; mood and affect tearful depressed a l. MUSCULOSKELETAL:No Clubbing/cyanosis;muscles-grossly intact. OA in several joints NEUROLOGICAL: Cranial nerves grossly intact; no facial asymmetry, power and sensation grossly intact. LYMPHATICS: No lymph nodes palpable in the axilla and neck INVESTIGATIONS, reviewed in the clinical context: September 27, 2024: White count 9.2 hemoglobin 10.4 platelets 246 potassium 4.4 bicarb 17 BUN 42 creatinine 1.76 blood glucose 35 Urine drug screen positive for oxycodone EKG tracing personally reviewed by me-normal sinus rhythm. CT brain without contrast: Unremarkable Chest x-ray film personally reviewed by me-possibly chronic changes in base Assessment plan: - Acute metabolic encephalopathy from taking multiple medications. She is not sure how much. Home medication include Zanaflex, Seroquel, Neurontin. Pills were found also scattered at home.: Better this morning Telemetry - Major depression with suicidal ideation. Patient took overdose with multiple medications at home. Consult social media senior associate. Consult psychiatry. K[place]. - Severe hypoglycemia from decreased oral intake Hypoglycemia protocol. Encourage oral intake - Chronic low back pain. Patient had lumbar surgery . Resume home medications. Stop NSAID because of low normal renal function. Add Tylenol 3. K-pad. - CKD possibly. Stage IV Stop NSAIDs. IV fluids. Follow labs. Has no protein in the urine. Tylenol. - Metabolic acidosis from kidney disease Sodium bicarbonate -Essential hypertension Hold off TAY inhibitor due to renal function for now. Follow blood pressure closely - Hypothyroid On Synthroid Check TSH - GERD PPI - Hyperlipidemia Lipitor Given the complexity and severity of patient's condition expect the patient to be in the hospital at least for 2 overnights Past Medical History Past Medical History: Hypertension Additional Past Medical History / Comment(s): High Cholestrol History of Any Multi-Drug Resistant Organisms: None Reported Past Surgical History: Appendectomy, Cholecystectomy, Orthopedic Surgery Additional Past Surgical History / Comment(s): Back surgery - August ( 8 rods placed) Past Psychological History: No Psychological Hx Reported Smoking Status: Never smoker Past Alcohol Use History: Rare Past Drug Use History: None Reported Medications and Allergies Home Medications Medication Instructions Recorded Confirmed Type Atorvastatin [Lipitor] 20 mg PO HS 09/26/24 09/26/24 History Celecoxib [CeleBREX] 100 mg PO BID 09/26/24 09/26/24 History Gabapentin [Neurontin] 200 mg PO DAILY 09/26/24 09/26/24 History Levothyroxine Sodium 25 mcg PO DAILY 09/26/24 09/26/24 History Oxybutynin ER [Ditropan XL] 20 mg PO DAILY 09/26/24 09/26/24 History Pantoprazole [Protonix] 40 mg PO DAILY 09/26/24 09/26/24 History QUEtiapine [SEROquel] 25 mg PO HS 09/26/24 09/26/24 History hydroCHLOROthiazide [Hydrodiuril] 25 mg PO DAILY 09/26/24 09/26/24 History lisinopriL [Zestril] 20 mg PO DAILY 09/26/24 09/26/24 History tiZANidine [Zanaflex] 4 mg PO BID 09/26/24 09/26/24 History Allergies Allergy/AdvReac Type Severity Reaction Status Date / Time ibuprofen Allergy Rash/Hives Verified 09/26/24 20:48 latex Allergy Unknown Verified 09/26/24 20:48 Physical Exam Vitals: Vital Signs Temp Pulse Pulse Resp BP BP Pulse Ox 09/27/24 13:41 98.1 F 57 L 16 91/57 96 09/27/24 06:50 97.2 F L 56 L 16 92/56 96 09/27/24 02:00 58 L 19 09/27/24 01:19 97.6 F 58 L 19 100/52 100 09/26/24 23:53 61 18 101/81 97 09/26/24 22:00 56 L 15 121/57 98 09/26/24 20:27 55 L 12 127/70 100 09/26/24 18:08 97.5 F L 68 17 140/74 97 Intake and Output 09/27/24 09/27/24 09/27/24 06:59 14:59 22:59 Output Total 0 Balance 0 Output: Urine 0 Other: Voiding Method External Catheter Diaper Incontinent # Bowel Movements 3 Weight 68.039 kg Results CBC & Chem 7: 09/27/24 03:48 09/27/24 03:48 Labs: Abnormal Lab Results - Last 24 Hours (Table) 09/26/24 09/26/24 09/26/24 Range/Units 19:14 20:03 20:03 RBC (4.10-5.20) 10*6/uL Hgb (12.0-15.0) g/dL Hct (37.2-46.3) % Lymphocytes # (0.90-5.00) 10*3/uL Eosinophils # (0.04-0.35) 10*3/uL Chloride (98-107) mmol/L Carbon Dioxide 18 L (22-30) mmol/L BUN 43 H (7-17) mg/dL Creatinine 1.61 H (0.52-1.04) mg/dL Glucose (74-99) mg/dL POC Glucose (mg/dL) (70-110) mg/dL AST 40 H (14-36) U/L Total Protein 6.1 L (6.3-8.2) g/dL Urine Appearance Cloudy H (Clear) Urine Blood Trace H (Negative) Ur Leukocyte Esterase Large H (Negative) Urine RBC 15 H (0-5) /hpf Urine WBC 11 H (0-5) /hpf Urine Bacteria Occasional H (None) /hpf Hyaline Casts 3 H (0-2) /lpf Urine Mucus Rare H (None) /hpf Ur Oxycodone Screen Detected H (NotDetected) 09/26/24 09/26/24 09/27/24 Range/Units 20:49 22:03 03:48 RBC 3.30 L 3.32 L (4.10-5.20) 10*6/uL Hgb 10.4 L 10.4 L (12.0-15.0) g/dL Hct 31.2 L 32.0 L (37.2-46.3) % Lymphocytes # 0.87 L (0.90-5.00) 10*3/uL Eosinophils # 0.01 L (0.04-0.35) 10*3/uL Chloride (98-107) mmol/L Carbon Dioxide (22-30) mmol/L BUN (7-17) mg/dL Creatinine (0.52-1.04) mg/dL Glucose (74-99) mg/dL POC Glucose (mg/dL) 115 H (70-110) mg/dL AST (14-36) U/L Total Protein (6.3-8.2) g/dL Urine Appearance (Clear) Urine Blood (Negative) Ur Leukocyte Esterase (Negative) Urine RBC (0-5) /hpf Urine WBC (0-5) /hpf Urine Bacteria (None) /hpf Hyaline Casts (0-2) /lpf Urine Mucus (None) /hpf Ur Oxycodone Screen (NotDetected) 09/27/24 09/27/24 09/27/24 Range/Units 03:48 06:20 06:45 RBC (4.10-5.20) 10*6/uL Hgb (12.0-15.0) g/dL Hct (37.2-46.3) % Lymphocytes # (0.90-5.00) 10*3/uL Eosinophils # (0.04-0.35) 10*3/uL Chloride 108 H (98-107) mmol/L Carbon Dioxide 17 L (22-30) mmol/L BUN 42 H (7-17) mg/dL Creatinine 1.76 H (0.52-1.04) mg/dL Glucose 35 L* (74-99) mg/dL POC Glucose (mg/dL) 34 L* 40 L* (70-110) mg/dL AST (14-36) U/L Total Protein (6.3-8.2) g/dL Urine Appearance (Clear) Urine Blood (Negative) Ur Leukocyte Esterase (Negative) Urine RBC (0-5) /hpf Urine WBC (0-5) /hpf Urine Bacteria (None) /hpf Hyaline Casts (0-2) /lpf Urine Mucus (None) /hpf Ur Oxycodone Screen (NotDetected) Thrombosis Risk Factor Assmnt - Choose All That Apply Any of the Below Risk Factors Present?: No Each Risk Factor Represents 3 Points: Age 75 years or older Thrombosis Risk Factor Assessment Total Risk Factor Score: 3 Thrombosis Risk Factor Assessment Level: Moderate Risk
[2024-09-27] MEDS: DEXTROSE 5%-0.45% NACL 1,000 ML IV SCH (19:33)
[2024-09-27 20:06] LABS: Glucose,Whole Blood 89 mg/dL (70-110)
[2024-09-27] MEDS: SODIUM BICARBONATE TAB 650 MG TAB PO SCH (21:48)
[2024-09-28] MEDS: SODIUM CHLORIDE 0.9% 250 ML IV SCH ×2 (01:27→02:07)
[2024-09-28 04:02] LABS: African American GFR (CKD) 23 (>60 ml/min/1.73 sqM); Anion Gap 11 mmol/L; Blood Urea Nitrogen 46 mg/dL (7-17); Calcium 7.8 mg/dL (8.4-10.2); Carbon Dioxide 18 mmol/L (22-30); Chloride 112 mmol/L (98-107); Glucose 71 mg/dL (74-99); Non-African American GFR(CKD) 20 (>60 ml/min/1.73 sqM); Potassium 4.8 mmol/L (3.5-5.1); Sodium 141 mmol/L (137-145)
[2024-09-28 05:14] LABS: T4, Free (Free Thyroxine) 1.58 ng/dL (0.78-2.19)
[2024-09-28 06:15] LABS: Glucose,Whole Blood 64 mg/dL (70-110)
[2024-09-28 06:43] LABS: Glucose,Whole Blood 65 mg/dL (70-110)
[2024-09-28] MEDS: DEXTROSE 50% SYRINGE 50 ML IVP PRN (06:51)
[2024-09-28 07:07] LABS: Glucose,Whole Blood 95 mg/dL (70-110)
[2024-09-28] MEDS: ENOXAPARIN 30 MG/0.3 ML SYRINGE SQ SCH (09:45)
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
[2024-09-28 11:31] LABS: Glucose,Whole Blood 94 mg/dL (70-110)
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
[2024-09-28] MEDS: MIDODRINE 5 MG TAB PO SCH (14:22)
[2024-09-28 15:03] VITALS: BMI 25.0
[2024-09-28 16:17] LABS: Glucose,Whole Blood 161 mg/dL (70-110)
[2024-09-29 06:28] LABS: Glucose,Whole Blood 130 mg/dL (70-110)
--- NOTE | 2024-09-29 09:42 | P.CN ---
Psychiatric Consult - . Consult date: 09/29/24 Consult:: 09/29/24 09:38 Intermittent follow-up IDENTIFYING DATA: This patient is a 79 year old female living with her daughter and retired REASON FOR REFERRAL: Psychiatry was consulted for suicide attempt HISTORY OF PRESENT ILLNESS: Upon entering the room patient was lying relaxed in bed did not present as tearful as she did yesterday. When asking her if she had talked to her daughter she got somewhat tense and stated "no". She notes that she is not having any suicidal thoughts today. She notes things are going "okay". She notes mild depression and when asked about anxiety he notes "okay". She notes that she slept last night without any problems. She notes that her energy is low. When asking about appetite concentration she notes "okay". We discussed about transferring to the psychiatric unit briefly upon medical stabilization. Stressors: Family Collateral: The patient refused to let me speak to her daughter MENTAL STATUS EXAM: General Appearance: Patient appears to be stated age is alert, pleasant, and cooperative. Behavior: Patient was dressed appropriately in a hospital gown and appeared to be groomed and was cooperative. Speech: Patient's speech is fluent and nonpressured. Mood/Affect: Patient reports their mood is "moderately depression", affect is congruent Suicidality/Homicidality: The patient is denying any suicidal thoughts at this time. Perceptions: Patient denies any visual hallucinations and denies any auditory hallucinations Though content/process: The patient is currently linear and logical Memory and concentration: AOX3, grossly intact for the purposes of this session. Can spell "WORLD" backwards Judgment and insight: Poor Diagnosis: Adjustment disorder with depressed mood and conduct Assessment: The patient is still a risk to herself specifically with the impulsive suicide attempt and currently fractured family ties with lack of support. Will continue to recommend the use sitter as well as transfer to the psychiatric unit once medically stable. PLAN: -At this time patient DOES meet criteria for inpatient psychiatric admission. -Would recommend the following medication changes/additions: Hold at this time -Continue 1:1 sitter for safety -Cannot leave AMA at this time. Patient will need a petition and certification if attempting to leave AMA. -When medically stable, patient is eligible for transfer to a psych bed when available. -Communicated plan to patient's nurse -Will continue to follow along -Please contact with any questions.
--- NOTE | 2024-09-29 10:57 | P.NPCON ---
History of Present Illness - Reason for Consult acute renal failure - History of Present Illness Reason for consultation: Acute kidney injury History of present illness: Patient is a 79-year-old female seen in renal consultation for acute kidney injury. Patient has chronic kidney disease stage IIIb with creatinine 1.6 in February 2024. Creatinine was 1.6 on admission and is up to 2.25 today. Patient came to the hospital due to overdose. Patient attempted suicide and states she took multiple pills of Celebrex and another medication which she cannot recall. Patient states she took at least 20 pills of Celebrex. Oral intake is fair. No vomiting or diarrhea. She was also on lisinopril outpatient which is currently held. I also see thiazide diuretic on her home medication list which is also held. She is currently receiving half-normal saline at 125 cc an hour. Blood pressures have been on the lower end in the systolic 80s to 90s. Has a Watts catheter. Nonoliguric. Denies chest pain or shortness of breath. Vital signs are stable. General: No acute distress. HEENT: Head exam is unremarkable. LUNGS: No audible rhonchi or wheezes. HEART: Rate and Rhythm are regular. ABDOMEN: Nontender. EXTREMITITES: No edema. Past Medical History Past Medical History: Hypertension Additional Past Medical History / Comment(s): High Cholestrol History of Any Multi-Drug Resistant Organisms: None Reported Past Surgical History: Appendectomy, Cholecystectomy, Orthopedic Surgery Additional Past Surgical History / Comment(s): Back surgery - August ( [address] aced) Past Psychological History: No Psychological Hx Reported Smoking Status: Never smoker Past Alcohol Use History: Rare Past Drug Use History: None Reported Medications and Allergies Home Medications Medication Instructions Recorded Confirmed Type Atorvastatin [Lipitor] 20 mg PO HS 09/26/24 09/26/24 History Celecoxib [CeleBREX] 100 mg PO BID 09/26/24 09/26/24 History Gabapentin [Neurontin] 200 mg PO DAILY 09/26/24 09/26/24 History Levothyroxine Sodium 25 mcg PO DAILY 09/26/24 09/26/24 History Oxybutynin ER [Ditropan XL] 20 mg PO DAILY 09/26/24 09/26/24 History Pantoprazole [Protonix] 40 mg PO DAILY 09/26/24 09/26/24 History QUEtiapine [SEROquel] 25 mg PO HS 09/26/24 09/26/24 History hydroCHLOROthiazide [Hydrodiuril] 25 mg PO DAILY 09/26/24 09/26/24 History lisinopriL [Zestril] 20 mg PO DAILY 09/26/24 09/26/24 History tiZANidine [Zanaflex] 4 mg PO BID 09/26/24 09/26/24 History Allergies Allergy/AdvReac Type Severity Reaction Status Date / Time ibuprofen Allergy Rash/Hives Verified 09/26/24 20:48 latex Allergy Unknown Verified 09/26/24 20:48 Physical Exam Vitals: Vital Signs Temp Pulse Resp BP Pulse Ox 09/29/24 10:28 52 L 104/64 09/29/24 06:54 97.9 F 52 L 16 80/46 96 09/29/24 01:30 98.2 F 56 L 14 96/62 98 09/28/24 20:17 90 16 09/28/24 19:31 97.4 F L 90 16 110/62 95 09/28/24 17:12 58 L 87/55 09/28/24 14:21 97.6 F 73 17 98/56 96 Intake and Output 09/28/24 09/29/24 09/29/24 22:59 06:59 14:59 Output Total 1950 1420 Balance -1950 -1420 Output: Urine 1950 1420 Other: Voiding Method Indwelling Catheter Indwelling Catheter # Voids 1 # Bowel Movements 1 Results - Lab Results Most recent lab results Calcium 7.8 mg/dL (8.4-10.2) L 09/28/24 03:14 09/27/24 03:48 09/28/24 03:14 Assessment and Plan Plan: Assessment: 1. Acute kidney injury secondary to ATN secondary to hypotension and NSAIDs. Creatinine 1.6 on admission and is 2.25 today. No proteinuria on UA. 2. Chronic kidney disease stage IIIb with creatinine 1.6 in February 2024. 3. Metabolic acidosis secondary to acute kidney injury and IV fluids. On oral bicarb. 4. Suicide attempt. Being followed by psychiatry. Plan: Change IV fluids to normal saline. Stop lisinopril. Maintain midodrine for now. Check renal ultrasound. Morning labs pending. Continue to monitor renal function and urine output. Thank you for the consultation. I will continue to follow the patient with you during her hospital stay.
[2024-09-29 11:39] LABS: African American GFR (CKD) 54 (>60 ml/min/1.73 sqM); Anion Gap 4 mmol/L; Blood Urea Nitrogen 23 mg/dL (7-17); Calcium 8.5 mg/dL (8.4-10.2); Carbon Dioxide 24 mmol/L (22-30); Chloride 113 mmol/L (98-107); Glucose 113 mg/dL (74-99); Magnesium 1.3 mg/dL (1.6-2.3); Non-African American GFR(CKD) 47 (>60 ml/min/1.73 sqM); Potassium 4.8 mmol/L (3.5-5.1); Sodium 141 mmol/L (137-145)
[2024-09-29 11:52] LABS: Glucose,Whole Blood 136 mg/dL (70-110)
[2024-09-29] MEDS: SODIUM CHLORIDE 0.9% 1,000 ML IV SCH (12:06)
--- NOTE | 2024-09-29 15:43 | US ---
EXAMINATION TYPE: US kidneys/renal and bladder DATE OF EXAM: 09/29/2024 COMPARISON: NONE CLINICAL INDICATION: Female, 79 years old with history of caorl; Low BP, AMS, Hypoglycemic episode, and HTN TECHNIQUE: Grayscale imaging of the bilateral kidneys and urinary bladder: FINDINGS: EXAM MEASUREMENTS: Right Kidney: 8.7 x 4.2 x 3.9 cm Left Kidney: 8.6 x 4.0 x 4.3 cm Post Void Residual Volume: NA mL Right Kidney: wnl, no evidence for hydronephrosis, mass or renal calculus. Left Kidney: wnl, no evidence for hydronephrosis, mass or renal calculus. Bladder: wnl Bilateral Jets seen: Right jet not seen within a five minute period Normal Post Void Residual: NA There is no evidence for hydronephrosis at this point in time. No nephrolithiasis is seen. No nya s are identified. The urinary bladder is anechoic. IMPRESSION: No sonographic evidence for hydronephrosis. [facility], , 09/29/2024 3:40 PM
--- NOTE | 2024-09-29 16:40 | P.PN ---
Progress Note - Text Progress Note Date: 09/29/24 Chief Complaint: Altered mentation Pleasant 79-year-old patient, follows with Dr. Giovanni Estrada. Chronic medical conditions include hypertension, hypercholesterolemia. Patient also had surgery of the lumbar spine in August of this year. Has pain from the same. Patient was brought into the ER with altered mentation with patient's daughter at the bedside. The daughter provided history to the ER physician that the patient has recently come to live with her. Patient is found to be confused at home in the afternoon. Several pills were spilled all over the ground. Last couple of days some diarrhea was reported with not eating much. Also patient was found to have a glucose of 50. By the EMS. When I started talking to patient she started tearing up and crying. She said she took extra pills on purpose tried to kill herself. She also has discovered apparently that her ex- had a girlfriend for some time. And she does not want to live with the daughter. She knows her options are limited. Patient is oriented and able to give me history. Her lunch was served but she is not much hungry. Denies any fever and chills. Does use a cane. September 28: Sitting up in the bed. Sitter at the bedside. Has been accepted to inpatient unit by psychiatry. I spoke to the patient she is willing to go down. Renal function is worsening. Patient did admit that she had taken her Celebrex including Zestril other pills altogether. Explaining her worsening renal function. She is getting D5 half saline 100 cc an hour. Decreased appetite. Add strict I's and O's. Add Nepro shakes. Blood pressure running low. Add LISSETTE stockings thigh-high and also add midodrine. Patient's TSH is low. Given her overall clinical Evelyn I highly doubt she is hypothyroid. Will DC Synthroid September 29: Doing much better. Eating better. Has a sitter. Psychiatry is looking for her to go to [facility]. Creatinine much better. Blood pressure better. Patient not tearful today. Active Medications Acetaminophen (Acetaminophen Tab 325 Mg Tab) 650 mg PO Q6HR PRN PRN Reason: Mild Pain or Fever > 100.5 Acetaminophen/Codeine Phosphate (Acetaminophen-Codeine 300-30mg Tab) 1 each PO Q4HR PRN PRN Reason: Pain 4-10 Atorvastatin Calcium (Atorvastatin 20 Mg Tab) 20 mg PO HS [facility] Last Admin: 09/28/24 20:24 Dose: 20 mg Dextrose/Water (Dextrose 50% Syringe 50 Ml) 25 ml IVP PER PROTOCOL PRN; Protocol PRN Reason: Hypoglycemia Last Admin: 09/28/24 06:51 Dose: 25 ml Dextrose/Water (Dextrose 50% Syringe 50 Ml) 50 ml IVP PER PROTOCOL PRN; Protocol PRN Reason: Hypoglycemia Last Admin: 09/27/24 06:52 Dose: 50 ml Enoxaparin Sodium (Enoxaparin 40 Mg/0.4 Ml Syringe) 40 mg SQ DAILY [facility] Gabapentin (Gabapentin 100 Mg Cap) 200 mg PO DAILY [facility] Last Admin: 09/29/24 09:12 Dose: 200 mg Sodium Chloride (Saline 0.9%) 1,000 mls @ 75 mls/hr IV .[id number] [facility] Last Admin: 09/29/24 12:06 Dose: 75 mls/hr Midodrine (Midodrine 5 Mg Tab) 5 mg PO AC-TID [facility] Last Admin: 09/29/24 16:10 Dose: 5 mg Naloxone HCl (Naloxone 0.4 Mg/Ml 1 Ml Vial) 0.2 mg IV Q2M PRN PRN Reason: Opioid Reversal Oxybutynin Chloride (Oxybutynin 10 Mg Tab.Er.24) 20 mg PO DAILY [facility] Last Admin: 09/29/24 09:15 Dose: 20 mg Pantoprazole Sodium (Pantoprazole 40 Mg Tablet) 40 mg PO DAILY [facility] Last Admin: 09/29/24 09:12 Dose: 40 mg Quetiapine Fumarate (Quetiapine 25 Mg Tab) 25 mg PO HS [facility] Last Admin: 09/28/24 20:23 Dose: 25 mg Sodium Bicarbonate (Sodium Bicarbonate Tab 650 Mg Tab) 650 mg PO BID [facility] Last Admin: 09/29/24 09:12 Dose: 650 mg Social history: Non-smoker. Alcohol rarely. Currently living with a daughter. Physical examination: VITAL SIGNS: 98.3, 53, 18, 121 x 69, 98% room air GENERAL: Comfortable in bed EYES: Pupils equal. Conjunctiva candido l. HEENT: External appearance of nose and ears normal, oral cavity grossly normal. NECK: JVD not raised; masses not palpable. HEART: First and second heart sounds are normal; no edema. LUNGS: Respiratory rate normal; clear to auscultation. ABDOMEN: Soft, nontender, liver spleen not palpable, no masses palpable. PSYCH: Alert and oriented x3; mood and affect a bit low MUSCULOSKELETAL:No Clubbing/cyanosis;muscles-grossly intact. 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 CT brain without contrast: Unremarkable Chest x-ray film personally reviewed by me-possibly chronic changes in base Assessment plan: - Acute metabolic encephalopathy from taking multiple medications. She is not sure how much. Home medication include Zanaflex, Seroquel, Neurontin. 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 Suicide attempt with overdose of multiple medications Consult social studies teacher. Seen by psychiatry. Patient has been accepted to inpatient psychiatry - Severe hypoglycemia from decreased oral intake Hypoglycemia protocol. Encourage oral intake Start Nepro supplement 1 can 3 times daily - Chronic low back pain. Patient had lumbar surgery . Resume home medications. Stop NSAID because of low normal renal function. Add Tylenol 3. K-pad. - Acute kidney injury likely ATN patient did take overdose of his Celebrex systolic. Appears. Above medications have been held. IV fluids. - CKD possibly. Stage IV Stop NSAIDs. IV fluids. Follow labs. Has no protein in the urine. Tylenol. - Metabolic acidosis from kidney disease Sodium bicarbonate -Essential hypertension, blood pressure still running low Hold off TAY inhibitor due to renal function for now. Follow blood pressure closely - Hypotension Had bilateral LISSETTE stockings thigh-high. Midodrine added. IV fluids -Clinically doubt hypothyroid. TSH is low. Patient has been on for small supplemental Synthroid 25 mcg. DC the same. - GERD PPI - Hyperlipidemia Lipitor Psychiatry team is now looking for her to go to [facility]. Past Medical History Past Medical History: Hypertension Additional Past Medical History / Comment(s): High Cholestrol History of Any Multi-Drug Resistant Organisms: None Reported Past Surgical History: Appendectomy, Cholecystectomy, Orthopedic Surgery Additional Past Surgical History / Comment(s): Back surgery - August ( 8 rods placed) Past Psychological History: No Psychological Hx Reported Smoking Status: Never smoker Past Alcohol Use History: Rare Past Drug Use History: None Reported
[2024-09-29 16:47] LABS: Glucose,Whole Blood 94 mg/dL (70-110)
[2024-09-29] MEDS: ACETAMINOPHEN TAB 325 MG TAB PO PRN (19:39)
[2024-09-29] MEDS: MAGNESIUM SULFATE-D5W PMX 1 GM in DEXTROSE/WATER 1 100ML.BAG IVPB SCH (19:40)
[2024-09-29 20:19] LABS: Glucose,Whole Blood 98 mg/dL (70-110)
[2024-09-30 03:44] LABS: African American GFR (CKD) 67 (>60 ml/min/1.73 sqM); Anion Gap 4 mmol/L; Blood Urea Nitrogen 19 mg/dL (7-17); Calcium 8.7 mg/dL (8.4-10.2); Carbon Dioxide 25 mmol/L (22-30); Chloride 110 mmol/L (98-107); Glucose 95 mg/dL (74-99); Magnesium 1.8 mg/dL (1.6-2.3); Non-African American GFR(CKD) 58 (>60 ml/min/1.73 sqM); Potassium 4.5 mmol/L (3.5-5.1); Sodium 139 mmol/L (137-145)
[2024-09-30 06:13] LABS: Glucose,Whole Blood 97 mg/dL (70-110)
[2024-09-30] MEDS: ENOXAPARIN 40 MG/0.4 ML SYRINGE SQ SCH (08:17)
[2024-09-30 11:30] LABS: Glucose,Whole Blood 81 mg/dL (70-110)
--- NOTE | 2024-09-30 11:35 | P.PN ---
Subjective Patient is seen for follow-up for acute kidney injury. Renal function has improved. Creatinine has decreased to 0.9 mg/dL. Tolerating oral intake. Maintain on IV fluids. Objective - Vital Signs Vital signs: Vital Signs Temp 97.9 F 09/30/24 07:54 Pulse 67 09/30/24 07:54 Resp 17 09/30/24 07:54 BP 151/87 09/30/24 07:54 Pulse Ox 99 09/30/24 07:54 FiO2 Intake & Output 09/29/24 09/30/24 09/30/24 18:59 06:59 18:59 Output Total 800 Balance -800 Output: Stool 800 Other: Voiding Method Indwelling Catheter Toilet # Voids 1 2 1 - Exam Patient is comfortable awake not in any acute distress Examination of the heart S1 and S2 Examination of the lungs bilateral breath sounds are heard Abdomen is soft nontender Examination of lower extremities shows no significant edema - Labs CBC & Chem 7: 09/27/24 03:48 09/30/24 02:33 Labs: Abnormal Lab Results - Last 24 Hours (Table) 09/29/24 09/29/24 09/30/24 Range/Units 11:01 11:51 02:33 Chloride 113 H 110 H (98-107) mmol/L BUN 23 H 19 H (7-17) mg/dL Creatinine 1.12 H (0.52-1.04) mg/dL Glucose 113 H (74-99) mg/dL POC Glucose (mg/dL) 136 H (70-110) mg/dL Magnesium 1.3 L (1.6-2.3) mg/dL Assessment and Plan Assessment: 1. Acute kidney injury secondary to ATN secondary to hypotension and NSAIDs. Creatinine 1.6 on admission and is 2.25 today. No proteinuria on UA. 2. Chronic kidney disease stage IIIb with creatinine 1.6 in February 2024. 3. Metabolic acidosis secondary to acute kidney injury and IV fluids. On oral bicarb. 4. Suicide attempt. Being followed by psychiatry. Plan: Okay to discontinue IV fluids Continue to encourage increased oral intake Continue to avoid nephrotoxic agents. Decrease sodium bicarb
[2024-09-30 16:59] LABS: Glucose,Whole Blood 95 mg/dL (70-110)
--- NOTE | 2024-09-30 18:48 | P.PN ---
Progress Note - Text Progress Note Date: 09/30/24 Chief Complaint: Altered mentation Pleasant 79-year-old patient, follows with Dr. Giovanni Estrada. Chronic medical conditions include hypertension, hypercholesterolemia. Patient also had surgery of the lumbar spine in August of this year. Has pain from the same. Patient was brought into the ER with altered mentation with patient's daughter at the bedside. The daughter provided history to the ER physician that the patient has recently come to live with her. Patient is found to be confused at home in the afternoon. Several pills were spilled all over the ground. Last couple of days some diarrhea was reported with not eating much. Also patient was found to have a glucose of 50. By the EMS. When I started talking to patient she started tearing up and crying. She said she took extra pills on purpose tried to kill herself. She also has discovered apparently that her ex- had a girlfriend for some time. And she does not want to live with the daughter. She knows her options are limited. Patient is oriented and able to give me history. Her lunch was served but she is not much hungry. Denies any fever and chills. Does use a cane. September 28: Sitting up in the bed. Sitter at the bedside. Has been accepted to inpatient unit by psychiatry. I spoke to the patient she is willing to go down. Renal function is worsening. Patient did admit that she had taken her Celebrex including Zestril other pills altogether. Explaining her worsening renal function. She is getting D5 half saline 100 cc an hour. Decreased appetite. Add strict I's and O's. Add Nepro shakes. Blood pressure running low. Add LISSETTE stockings thigh-high and also add midodrine. Patient's TSH is low. Given her overall clinical Evelyn I highly doubt she is hypothyroid. Will DC Synthroid September 29: Doing much better. Eating better. Has a sitter. Psychiatry is looking for her to go to [facility]. Creatinine much better. Blood pressure better. Patient not tearful today. September 30: Patient had great improvement. Smiling. She feels silly and stupid about what she did with overdose. In fact using a walker she walked the entire round of the hallway. Had half of breakfast and for lunch. As the blood pressure running up. Midodrine is being discontinued. Patient's creatinine is normalized at 0.94. Will also DC bicarbonate Active Medications Acetaminophen (Acetaminophen Tab 325 Mg Tab) 650 mg PO Q6HR PRN PRN Reason: Mild Pain or Fever > 100.5 Last Admin: 09/30/24 02:28 Dose: 650 mg Acetaminophen/Codeine Phosphate (Acetaminophen-Codeine 300-30mg Tab) 1 each PO Q4HR PRN PRN Reason: Pain 4-10 Atorvastatin Calcium (Atorvastatin 20 Mg Tab) 20 mg PO HS [facility] Last Admin: 09/29/24 20:55 Dose: 20 mg Dextrose/Water (Dextrose 50% Syringe 50 Ml) 25 ml IVP PER PROTOCOL PRN; Protocol PRN Reason: Hypoglycemia Last Admin: 09/28/24 06:51 Dose: 25 ml Dextrose/Water (Dextrose 50% Syringe 50 Ml) 50 ml IVP PER PROTOCOL PRN; Protocol PRN Reason: Hypoglycemia Last Admin: 09/27/24 06:52 Dose: 50 ml Enoxaparin Sodium (Enoxaparin 40 Mg/0.4 Ml Syringe) 40 mg SQ DAILY [facility] Last Admin: 09/30/24 08:17 Dose: 40 mg Gabapentin (Gabapentin 100 Mg Cap) 200 mg PO DAILY [facility] Last Admin: 09/30/24 08:17 Dose: 200 mg Naloxone HCl (Naloxone 0.4 Mg/Ml 1 Ml Vial) 0.2 mg IV Q2M PRN PRN Reason: Opioid Reversal Oxybutynin Chloride (Oxybutynin 10 Mg Tab.Er.24) 20 mg PO DAILY [facility] Last Admin: 09/30/24 08:16 Dose: 20 mg Pantoprazole Sodium (Pantoprazole 40 Mg Tablet) 40 mg PO DAILY [facility] Last Admin: 09/30/24 08:17 Dose: 40 mg Quetiapine Fumarate (Quetiapine 25 Mg Tab) 25 mg PO HS [facility] Last Admin: 09/29/24 20:55 Dose: 25 mg Sodium Bicarbonate (Sodium Bicarbonate Tab 650 Mg Tab) 650 mg PO DAILY [facility] Social history: Non-smoker. Alcohol rarely. Currently living with a daughter. Physical examination: VITAL SIGNS: 98.3, 56, 18, 144 x 76 manually, 100% room air GENERAL: Comfortable EYES: Pupils equal. Conjunctiva candido l. HEENT: External appearance of nose and ears normal, oral cavity grossly normal. NECK: JVD not raised; masses not palpable. HEART: First and second heart sounds are normal; no edema. LUNGS: Respiratory rate normal; clear to auscultation. ABDOMEN: Soft, nontender, liver spleen not palpable, no masses palpable. PSYCH: Alert and oriented x3; mood and affect a bit low MUSCULOSKELETAL:No Clubbing/cyanosis;muscles-grossly intact. 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 CT brain without contrast: Unremarkable Chest x-ray film personally reviewed by me-possibly chronic changes in base Assessment plan: - Acute metabolic encephalopathy from taking multiple medications. She is not sure how much. Home medication include Zanaflex, Seroquel, Neurontin. 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 Suicide attempt with overdose of multiple medications Consult social work associate. Seen by psychiatry. Patient has been accepted to inpatient psychiatry. Psychiatry wants the patient to be transferred to [facility] psychiatry unit. - Severe hypoglycemia from decreased oral intake: Better Hypoglycemia protocol. Encourage oral intake Change Nepro supplement to ensure - Chronic low back pain. Patient had lumbar surgery . Resume home medications. Stop NSAID because of low normal renal function. Add Tylenol 3. K-pad. - Acute kidney injury likely ATN patient did take overdose of his Celebrex systolic. Resolved Above medications have been held. IV fluids. -No CKD. - Metabolic acidosis from acute kidney injury. Resolved Sodium bicarbonate discontinue -Essential hypertension, blood pressures,. Hold off TAY inhibitor for now - Hypotension: Much improved Had bilateral LISSETTE stockings thigh-high. Stop midodrine IV fluids -Clinically doubt hypothyroid. TSH is low. Patient has been on for small supplemental Synthroid 25 mcg. DC the same. - GERD PPI - Hyperlipidemia Lipitor Stop IV fluids. Stop midodrine. Stop sodium bicarbonate. Pending transfer to [facility] psychiatry unit. Past Medical History Past Medical History: Hypertension Additional Past Medical History / Comment(s): High Cholestrol History of Any Multi-Drug Resistant Organisms: None Reported Past Surgical History: Appendectomy, Cholecystectomy, Orthopedic Surgery Additional Past Surgical History / Comment(s): Back surgery - August ( 8 rods placed) Past Psychological History: No Psychological Hx Reported Smoking Status: Never smoker Past Alcohol Use History: Rare Past Drug Use History: None Reported
[2024-09-30 20:33] LABS: Glucose,Whole Blood 139 mg/dL (70-110)
[2024-10-01 06:17] LABS: Glucose,Whole Blood 95 mg/dL (70-110)
[2024-10-01] MEDS ORDERED: SODIUM BICARBONATE TAB 650 MG TAB PO SCH (09:00)
--- NOTE | 2024-10-01 09:19 | P.CN ---
Psychiatric Consult - . Consult date: 10/01/24 Consult:: 10/01/24 09:16 Intermittent follow-up IDENTIFYING DATA: This patient is a 79 year old female living with her daughter and retired REASON FOR REFERRAL: Psychiatry was consulted for suicide attempt HISTORY OF PRESENT ILLNESS: Upon entering the room the patient's lights were off. The patient was sitting in bed and appeared to be comfortable. When asking the patient had she spoken to her daughter she had stated "no she is why I am here". When asking her where she would stay she noted with one of her grandchildren Theresa. I asked her if she contacted her and she said yes. When asking for the phone number the patient notes that she did not have the phone number. The patient denies any depression or anxiety. She notes that she is not suicidal or homicidal. She notes that her sleep, energy, appetite and concentration are normal. Stressors: Family Collateral: The patient refused to let me speak to her daughter MENTAL STATUS EXAM: General Appearance: Patient appears to be stated age is alert, pleasant, and cooperative. Behavior: Patient was dressed appropriately in a hospital gown and appeared to be groomed and was cooperative. Speech: Patient's speech is fluent and nonpressured. Mood/Affect: Patient reports their mood is "moderately depression", affect is congruent Suicidality/Homicidality: The patient is denying any suicidal thoughts at this time. Perceptions: Patient denies any visual hallucinations and denies any auditory hallucinations Though content/process: The patient is currently linear and logical Memory and concentration: AOX3, grossly intact for the purposes of this session. 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 With the addition of the patient being very ambiguous saying she spoke to her granddaughter that did not have the number it is felt that she is still at a high risk and requires hospitalization. PLAN: -At this time patient DOES meet criteria for inpatient psychiatric admission. -Would recommend the following medication changes/additions: Hold at this time -Continue 1:1 sitter for safety -Cannot leave AMA at this time. Patient will need a petition and certification if attempting to leave AMA. -When medically stable, patient is eligible for transfer to a psych bed when available. -Communicated plan to patient's nurse -Will continue to follow along -Please contact with any questions.
[2024-10-01 11:52] LABS: Glucose,Whole Blood 90 mg/dL (70-110)
--- NOTE | 2024-10-01 13:44 | P.PN ---
Subjective Patient is seen for follow-up for acute kidney injury. Renal function has improved. Creatinine has decreased to 0.9 mg/dL. Tolerating oral intake. Maintain on IV fluids. Objective - Vital Signs Vital signs: Vital Signs Temp 98.0 F 10/01/24 07:28 Pulse 48 L 10/01/24 07:28 Resp 17 10/01/24 07:28 BP 123/75 10/01/24 07:28 Pulse Ox 97 10/01/24 07:28 FiO2 Intake & Output 09/30/24 10/01/24 10/01/24 18:59 06:59 18:59 Weight 68.039 kg Other: # Voids 3 3 - Exam Patient is comfortable awake not in any acute distress Examination of the heart S1 and S2 Examination of the lungs bilateral breath sounds are heard Abdomen is soft nontender Examination of lower extremities shows no significant edema - Labs CBC & Chem 7: 09/27/24 03:48 09/30/24 02:33 Labs: Abnormal Lab Results - Last 24 Hours (Table) 09/30/24 Range/Units 20:32 POC Glucose (mg/dL) 139 H (70-110) mg/dL Assessment and Plan Assessment: 1. Acute kidney injury secondary to ATN secondary to hypotension and NSAIDs. Serum creatinine peaked at 2.2 and is down to 0.9 on 09/30/2024. No proteinuria on UA. 2. Chronic kidney disease stage IIIb with creatinine 1.6 in February 2024. 3. Metabolic acidosis secondary to acute kidney injury and IV fluids. On oral bicarb. 4. Suicide attempt. Being followed by psychiatry. Plan: Continue to encourage increased oral intake Continue to avoid nephrotoxic agents. Decrease sodium bicarb
--- NOTE | 2024-10-01 14:45 | P.PN ---
Progress Note - Text Progress Note Date: 10/01/24 Chief Complaint: Altered mentation Pleasant 79-year-old patient, follows with Dr. Giovanni Estrada. Chronic medical conditions include hypertension, hypercholesterolemia. Patient also had surgery of the lumbar spine in August of this year. Has pain from the same. Patient was brought into the ER with altered mentation with patient's daughter at the bedside. The daughter provided history to the ER physician that the patient has recently come to live with her. Patient is found to be confused at home in the afternoon. Several pills were spilled all over the ground. Last couple of days some diarrhea was reported with not eating much. Also patient was found to have a glucose of 50. By the EMS. When I started talking to patient she started tearing up and crying. She said she took extra pills on purpose tried to kill herself. She also has discovered apparently that her ex- had a girlfriend for some time. And she does not want to live with the daughter. She knows her options are limited. Patient is oriented and able to give me history. Her lunch was served but she is not much hungry. Denies any fever and chills. Does use a cane. September 28: Sitting up in the bed. Sitter at the bedside. Has been accepted to inpatient unit by psychiatry. I spoke to the patient she is willing to go down. Renal function is worsening. Patient did admit that she had taken her Celebrex including Zestril other pills altogether. Explaining her worsening renal function. She is getting D5 half saline 100 cc an hour. Decreased appetite. Add strict I's and O's. Add Nepro shakes. Blood pressure running low. Add LISSETTE stockings thigh-high and also add midodrine. Patient's TSH is low. Given her overall clinical Evelyn I highly doubt she is hypothyroid. Will DC Synthroid September 29: Doing much better. Eating better. Has a sitter. Psychiatry is looking for her to go to [facility]. Creatinine much better. Blood pressure better. Patient not tearful today. September 30: Patient had great improvement. Smiling. She feels silly and stupid about what she did with overdose. In fact using a walker she walked the entire round of the hallway. Had half of breakfast and for lunch. As the blood pressure running up. Midodrine is being discontinued. Patient's creatinine is normalized at 0.94. Will also DC bicarbonate October 01. Patient continues to well. Rather cheerful. Pain is very well- controlled. Eating much better. I spoke to Dr. Phoenix from psychiatry.-It is his assessment that patient will still benefit from [facility]. Patient's blood pressure is doing well. Active Medications Acetaminophen (Acetaminophen Tab 325 Mg Tab) 650 mg PO Q6HR PRN PRN Reason: Mild Pain or Fever > 100.5 Last Admin: 09/30/24 02:28 Dose: 650 mg Acetaminophen/Codeine Phosphate (Acetaminophen-Codeine 300-30mg Tab) 1 each PO Q4HR PRN PRN Reason: Pain 4-10 Atorvastatin Calcium (Atorvastatin 20 Mg Tab) 20 mg PO HS [facility] Last Admin: 09/30/24 20:24 Dose: 20 mg Dextrose/Water (Dextrose 50% Syringe 50 Ml) 25 ml IVP PER PROTOCOL PRN; Protocol PRN Reason: Hypoglycemia Last Admin: 09/28/24 06:51 Dose: 25 ml Dextrose/Water (Dextrose 50% Syringe 50 Ml) 50 ml IVP PER PROTOCOL PRN; Protocol PRN Reason: Hypoglycemia Last Admin: 09/27/24 06:52 Dose: 50 ml Enoxaparin Sodium (Enoxaparin 40 Mg/0.4 Ml Syringe) 40 mg SQ DAILY [facility] Last Admin: 10/01/24 08:44 Dose: 40 mg Gabapentin (Gabapentin 100 Mg Cap) 200 mg PO DAILY [facility] Last Admin: 10/01/24 08:44 Dose: 200 mg Naloxone HCl (Naloxone 0.4 Mg/Ml 1 Ml Vial) 0.2 mg IV Q2M PRN PRN Reason: Opioid Reversal Oxybutynin Chloride (Oxybutynin 10 Mg Tab.Er.24) 20 mg PO DAILY [facility] Last Admin: 10/01/24 08:43 Dose: 20 mg Pantoprazole Sodium (Pantoprazole 40 Mg Tablet) 40 mg PO DAILY [facility] Last Admin: 10/01/24 08:43 Dose: 40 mg Quetiapine Fumarate (Quetiapine 25 Mg Tab) 25 mg PO HS [facility] Last Admin: 09/30/24 20:23 Dose: 25 mg Social history: Non-smoker. Alcohol rarely. Currently living with a daughter. Physical examination: VITAL SIGNS: 98.2, 57, 18, 123 presently 5, 100% room air GENERAL: Comfortable, cheerful EYES: Pupils equal. Conjunctiva candido l. HEENT: External appearance of nose and ears normal, oral cavity grossly normal. NECK: JVD not raised; masses not palpable. HEART: First and second heart sounds are normal; no edema. LUNGS: Respiratory rate normal; clear to auscultation. ABDOMEN: Soft, nontender, liver spleen not palpable, no masses palpable. PSYCH: Alert and oriented x3; mood and affect, more cheerful MUSCULOSKELETAL:No Clubbing/cyanosis;muscles-grossly intact. 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 CT brain without contrast: Unremarkable Chest x-ray film personally reviewed by me-possibly chronic changes in base Assessment plan: - Acute metabolic encephalopathy from taking multiple medications. She is not sure how much. Home medication include Zanaflex, Seroquel, Neurontin. 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 Suicide attempt with overdose of multiple medications Consult social work administrator. Seen by psychiatry. Patient initially was n accepted to inpatient psychiatry. Psychiatry wants the patient to be transferred to [facility]. - Severe hypoglycemia from decreased oral intake: Better Hypoglycemia protocol. Encourage oral intake Change Nepro supplement to ensure - Chronic low back pain. Patient had lumbar surgery . Resume home medications. Stop NSAID because of low normal renal function. Add Tylenol 3. K-pad. - Acute kidney injury likely ATN patient did take overdose of his Celebrex systolic. Resolved Above medications have been held. IV fluids. -No CKD. - Metabolic acidosis from acute kidney injury. Resolved Sodium bicarbonate discontinue -Essential hypertension, blood pressures better,. Hold off TAY inhibitor for now - Hypotension: Much improved Had bilateral LISSETTE stockings thigh-high. Stop midodrine IV fluids -Clinically doubt hypothyroid. TSH is low. Patient has been on for small supplemental Synthroid 25 mcg. DC the same. - GERD PPI - Hyperlipidemia Lipitor Doing well. Spoke to the psychiatrist. Patient to go to [facility] psychiatric further evaluation. Pending the same. Past Medical History Past Medical History: Hypertension Additional Past Medical History / Comment(s): High Cholestrol History of Any Multi-Drug Resistant Organisms: None Reported Past Surgical History: Appendectomy, Cholecystectomy, Orthopedic Surgery Additional Past Surgical History / Comment(s): Back surgery - August ( 8 rods placed) Past Psychological History: No Psychological Hx Reported Smoking Status: Never smoker Past Alcohol Use History: Rare Past Drug Use History: None Reported
[2024-10-01 20:31] LABS: Glucose,Whole Blood 115 mg/dL (70-110)
--- NOTE | 2024-10-02 14:27 | P.CN ---
Psychiatric Consult - . Consult date: 10/02/24 Consult:: 10/02/24 14:21 Intermittent follow-up IDENTIFYING DATA: This patient is a 79 year old female living with her daughter and retired REASON FOR REFERRAL: Psychiatry was consulted for suicide attempt HISTORY OF PRESENT ILLNESS: Upon entering the room the patient was up and walking. She denied any ongoing depression or anxiety. She denied any suicidal thoughts. She notes that her sleep, energy, appetite and concentration are good. She gave me verbal permission to speak to her granddaughter. The number was obtained at the desk and I contacted the granddaughter. The granddaughter felt that the patient is not quite herself as of yet. Additionally her and her cousin have been telling nursing staff that the patient needs inpatient hospitalization. She notes that she is fearful that her grandmother might try to kill her herself again. Stressors: Family Collateral: The patient refused to let me speak to her daughter MENTAL STATUS EXAM: General Appearance: Patient appears to be stated age is alert, pleasant, and cooperative. Behavior: Patient was dressed appropriately in a hospital gown and appeared to be groomed and was cooperative. Speech: Patient's speech is fluent and nonpressured. Mood/Affect: Patient reports their mood is "moderately depression", affect is congruent Suicidality/Homicidality: The patient is denying any suicidal thoughts at this time. Perceptions: Patient denies any visual hallucinations and denies any auditory hallucinations Though content/process: The patient is currently linear and logical Memory and concentration: AOX3, grossly intact for the purposes of this session. Can spell "WORLD" backwards Judgment and insight: Poor/Poor Diagnosis: Adjustment disorder with depressed mood and conduct Recommendations: The patient still needs inpatient geriatric psych admission. The hospitalist needs to CERT the patient specifically because of the suicide attempt. After the hospitalist does this then the unit psychologist social can start working on finding inpatient bed placement. It is up to the hospitalist at this point to decide whether he will do the CERT or discharged the patient but we advise highly to have the patient admitted to a [facility]. PLAN: -At this time patient DOES meet criteria for inpatient psychiatric admission. -Would recommend the following medication changes/additions: Hold at this time -Continue 1:1 sitter for safety -Cannot leave AMA at this time. Patient will need a petition and certification if attempting to leave AMA. -When medically stable, patient is eligible for transfer to a psych bed when available. -Communicated plan to patient's nurse -Will continue to follow along -Please contact with any questions.
--- NOTE | 2024-10-02 21:07 | P.PN ---
Progress Note - Text Progress Note Date: 10/02/24 Chief Complaint: Altered mentation Pleasant 79-year-old patient, follows with Dr. Giovanni Estrada. Chronic medical conditions include hypertension, hypercholesterolemia. Patient also had surgery of the lumbar spine in August of this year. Has pain from the same. Patient was brought into the ER with altered mentation with patient's daughter at the bedside. The daughter provided history to the ER physician that the patient has recently come to live with her. Patient is found to be confused at home in the afternoon. Several pills were spilled all over the ground. Last couple of days some diarrhea was reported with not eating much. Also patient was found to have a glucose of 50. By the EMS. When I started talking to patient she started tearing up and crying. She said she took extra pills on purpose tried to kill herself. She also has discovered apparently that her ex- had a girlfriend for some time. And she does not want to live with the daughter. She knows her options are limited. Patient is oriented and able to give me history. Her lunch was served but she is not much hungry. Denies any fever and chills. Does use a cane. September 28: Sitting up in the bed. Sitter at the bedside. Has been accepted to inpatient unit by psychiatry. I spoke to the patient she is willing to go down. Renal function is worsening. Patient did admit that she had taken her Celebrex including Zestril other pills altogether. Explaining her worsening renal function. She is getting D5 half saline 100 cc an hour. Decreased appetite. Add strict I's and O's. Add Nepro shakes. Blood pressure running low. Add LISSETTE stockings thigh-high and also add midodrine. Patient's TSH is low. Given her overall clinical Evelyn I highly doubt she is hypothyroid. Will DC Synthroid September 29: Doing much better. Eating better. Has a sitter. Psychiatry is looking for her to go to [facility]. Creatinine much better. Blood pressure better. Patient not tearful today. September 30: Patient had great improvement. Smiling. She feels silly and stupid about what she did with overdose. In fact using a walker she walked the entire round of the hallway. Had half of breakfast and for lunch. As the blood pressure running up. Midodrine is being discontinued. Patient's creatinine is normalized at 0.94. Will also DC bicarbonate October 01. Patient continues to well. Rather cheerful. Pain is very well- controlled. Eating much better. I spoke to Dr. Phoenix from psychiatry.-It is his assessment that patient will still benefit from [facility]. Patient's blood pressure is doing well. October 02: Patient walked twice around the hallway. Eating well. Denies any pain. Patient denies being suicidal. Does not want to hurt herself. She says the problem was her daughter which is not there anymore. She states her granddaughterPari, who has 5 children at home will take her in. And that she had come to visit her today. I did call the patient's granddaughter who is in the 30s. She said she does have a place in the house for her about the patient will moved to her cousins and has a room. She says the patient is her is in [place]. Apparently the patient was in talking to somebody online. And he scammed out of money. Because that some family members broke up with the patient. Her who lives in [place] dropped her off to her daughter's place. As per the granddaughter her mother offered I will be s houting at the patient because of this issue with the person and money. The granddaughter did note that patient is a bit forgetful. Patient has a sitter. Patient had some disturbed sleeping last night because her room door was open. I will have speech therapy come back to evaluate her cognition. At this point patient not making any overt indications of hurting herself or appears depressed. On specifically asking if she wants to kill herself or hurt herself or jump in front of a car etc. Patient denies the same. She states she wants to live take care of herself and take care of her dog. At this point I would hold off doing the Cert, until I am more convinced of the same that it is required and if the best possible option for the patient. In terms of patient being sent to a [facility]. Appreciate input from psychiatry., Also discussed with r social and political studies professor. Total time spent today about 50 minutes with over 35 minutes of discussion Active Medications Acetaminophen (Acetaminophen Tab 325 Mg Tab) 650 mg PO Q6HR PRN PRN Reason: Mild Pain or Fever > 100.5 Last Admin: 09/30/24 02:28 Dose: 650 mg Acetaminophen/Codeine Phosphate (Acetaminophen-Codeine 300-30mg Tab) 1 each PO Q4HR PRN PRN Reason: Pain 4-10 Atorvastatin Calcium (Atorvastatin 20 Mg Tab) 20 mg PO [facility] Last Admin: 10/02/24 19:56 Dose: 20 mg Dextrose/Water (Dextrose 50% Syringe 50 Ml) 25 ml IVP PER PROTOCOL PRN; Protocol PRN Reason: Hypoglycemia Last Admin: 09/28/24 06:51 Dose: 25 ml Dextrose/Water (Dextrose 50% Syringe 50 Ml) 50 ml IVP PER PROTOCOL PRN; P rotocol PRN Reason: Hypoglycemia Last Admin: 09/27/24 06:52 Dose: 50 ml Enoxaparin Sodium (Enoxaparin 40 Mg/0.4 Ml Syringe) 40 mg SQ DAILY [facility] Last Admin: 10/02/24 08:17 Dose: 40 mg Gabapentin (Gabapentin 100 Mg Cap) 200 mg PO DAILY [facility] Last Admin: 10/02/24 08:17 Dose: 200 mg Naloxone HCl (Naloxone 0.4 Mg/Ml 1 Ml Vial) 0.2 mg IV Q2M PRN PRN Reason: Opioid Reversal Oxybutynin Chloride (Oxybutynin 10 Mg Tab.Er.24) 20 mg PO DAILY [facility] Last Admin: 10/02/24 08:17 Dose: 20 mg Pantoprazole Sodium (Pantoprazole 40 Mg Tablet) 40 mg PO DAILY [facility] Last Admin: 10/02/24 08:17 Dose: 40 mg Quetiapine Fumarate (Quetiapine 25 Mg Tab) 25 mg PO [facility] Last Admin: 10/02/24 19:56 Dose: 25 mg Social history: Non-smoker. Alcohol rarely. Currently living with a daughter. Physical examination: VITAL SIGNS: 98, 61, 17, 149 x 58, 97% room air GENERAL: Comfortable, cheerful EYES: Pupils equal. Conjunctiva candido l. HEENT: External appearance of nose and ears normal, oral cavity grossly normal. NECK: JVD not raised; masses not palpable. HEART: First and second heart sounds are normal; no edema. LUNGS: Respiratory rate normal; clear to auscultation. ABDOMEN: Soft, nontender, liver spleen not palpable, no masses palpable. PSYCH: Alert and oriented x3; mood and affect, pleasant. MUSCULOSKELETAL:No Clubbing/cyanosis;muscles-grossly intact. 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 CT brain without contrast: Unremarkable Chest x-ray film personally reviewed by me-possibly chronic changes in base Assessment plan: - Acute metabolic encephalopathy from taking multiple medications. She is not sure how much. Home medication include Zanaflex, Seroquel, Neurontin. 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 Suicide attempt with overdose of multiple medications Social work on the case. Seen by psychiatry. Patient initially was n accepted to inpatient psychiatry. Psychiatry wants the patient to be transferred to [facility]. - Severe hypoglycemia from decreased oral intake: Improved Hypoglycemia protocol. Encourage oral intake Change Nepro supplement to ensure - Chronic low back pain. Patient had lumbar surgery .: Much improved Resume home medications. Stop NSAID because of low normal renal function. Add Tylenol 3. K-pad. - Acute kidney injury likely ATN patient did take overdose of his Celebrex systolic. Resolved Above medications have been held. IV fluids. -No CKD. - Metabolic acidosis from acute kidney injury. Resolved Sodium bicarbonate discontinue -Essential hypertension, blood pressures better,. Hold off TAY inhibitor for now - Hypotension: Much improved Had bilateral LISSETTE stockings thigh-high. Stop midodrine IV fluids -Clinically doubt hypothyroid. TSH is low. Patient has been on for small supplemental Synthroid 25 mcg. DC the same. - Cognitive impairment. Patient does seem to forget during conversation. Patient did not remember the name of her grand daughter some of the kids Will consult speech therapy for a full cognition evaluation. - GERD PPI - Hyperlipidemia Lipitor Consult speech for full cognition evaluation. I will hold off filling out the cert, for now until further discussion evaluation and cognition evaluation. Past Medical History Past Medical History: Hypertension Additional Past Medical History / Comment(s): High Cholestrol History of Any Multi-Drug Resistant Organisms: None Reported Past Surgical History: Appendectomy, Cholecystectomy, Orthopedic Surgery Additional Past Surgical History / Comment(s): Back surgery - August ( 8 rods placed) Past Psychological History: No Psychological Hx Reported Smoking Status: Never smoker Past Alcohol Use History: Rare Past Drug Use History: None Reported
--- NOTE | 2024-10-03 17:33 | P.PN ---
Progress Note - Text Progress Note Date: 10/03/24 Chief Complaint: Altered mentation Pleasant 79-year-old patient, follows with Dr. Giovanni Estrada. Chronic medical conditions include hypertension, hypercholesterolemia. Patient also had surgery of the lumbar spine in August of this year. Has pain from the same. Patient was brought into the ER with altered mentation with patient's daughter at the bedside. The daughter provided history to the ER physician that the patient has recently come to live with her. Patient is found to be confused at home in the afternoon. Several pills were spilled all over the ground. Last couple of days some diarrhea was reported with not eating much. Also patient was found to have a glucose of 50. By the EMS. When I started talking to patient she started tearing up and crying. She said she took extra pills on purpose tried to kill herself. She also has discovered apparently that her ex- had a girlfriend for some time. And she does not want to live with the daughter. She knows her options are limited. Patient is oriented and able to give me history. Her lunch was served but she is not much hungry. Denies any fever and chills. Does use a cane. September 28: Sitting up in the bed. Sitter at the bedside. Has been accepted to inpatient unit by psychiatry. I spoke to the patient she is willing to go down. Renal function is worsening. Patient did admit that she had taken her Celebrex including Zestril other pills altogether. Explaining her worsening renal function. She is getting D5 half saline 100 cc an hour. Decreased appetite. Add strict I's and O's. Add Nepro shakes. Blood pressure running low. Add LISSETTE stockings thigh-high and also add midodrine. Patient's TSH is low. Given her overall clinical Evelyn I highly doubt she is hypothyroid. Will DC Synthroid September 29: Doing much better. Eating better. Has a sitter. Psychiatry is looking for her to go to a [facility]. Creatinine much better. Blood pressure better. Patient not tearful today. September 30: Patient had great improvement. Smiling. She feels silly and stupid about what she did with overdose. In fact using a walker she walked the entire round of the hallway. Had half of breakfast and for lunch. As the blood pressure running up. Midodrine is being discontinued. Patient's creatinine is normalized at 0.94. Will also DC bicarbonate October 01. Patient continues to well. Rather cheerful. Pain is very well- controlled. Eating much better. I spoke to Dr. Phoenix from psychiatry.-It is his assessment that patient will still benefit from [facility]. Patient's blood pressure is doing well. October 02: Patient walked twice around the hallway. Eating well. Denies any pain. Patient denies being suicidal. Does not want to hurt herself. She says the problem was her daughter which is not there anymore. She states her granddaughterPari, who has 5 children at home will take her in. And that she had come to visit her today. I did call the patient's granddaughter who is in the 30s. She said she does have a place in the house for her about the patient will moved to her cousins and has a room. She says the patient is her is in [place]. Apparently the patient was in talking to somebody online. And he scammed out of money. Because that some family members broke up with the patient. Her who lives in [place] dropped her off to her daughter's place. As per the granddaughter her mother offered I will be s houting at the patient because of this issue with the person and money. The granddaughter did note that patient is a bit forgetful. Patient has a sitter. Patient had some disturbed sleeping last night because her room door was open. I will have speech therapy come back to evaluate her cognition. At this point patient not making any overt indications of hurting herself or appears depressed. On specifically asking if she wants to kill herself or hurt herself or jump in front of a car etc. Patient denies the same. She states she wants to live take care of herself and take care of her dog. At this point I would hold off doing the Cert, until I am more convinced of the same that it is required and if the best possible option for the patient. In terms of patient being sent to a [facility]. Appreciate input from psychiatry., Also discussed with r social sciences professor. Total time spent today about 50 minutes with over 35 minutes of discussion October 03: Patient was seen by speech therapist. They administered the cognitive linguistic quick test assessment. Patient's score was as follows: Attention = 3, memory = 4, executive functions = 4, language = 4, visual-spatial skills = 4, clock drawing = 3 [Where 3 equals mild impairment and 4 equals within normal limits]. This will probably qualify as having mild cognitive impairment Patient remains cheerful. No suicidal ideation. She is looking forward to get discharge. She understands she may have to go [facility] psychiatry unit. Also possibility going to live with her granddaughter. Eating fair. Has a sitter. Ambulating well. With a walker Active Medications Acetaminophen (Acetaminophen Tab 325 Mg Tab) 650 mg PO Q6HR PRN PRN Reason: Mild Pain or Fever > 100.5 Last Admin: 09/30/24 02:28 Dose: 650 mg Acetaminophen/Codeine Phosphate (Acetaminophen-Codeine 300-30mg Tab) 1 each PO Q4HR PRN PRN Reason: Pain 4-10 Atorvastatin Calcium (Atorvastatin 20 Mg Tab) 20 mg PO [facility] Last Admin: 10/02/24 19:56 Dose: 20 mg Dextrose/Water (Dextrose 50% Syringe 50 Ml) 25 ml IVP PER PROTOCOL PRN; Protocol PRN Reason: Hypoglycemia Last Admin: 09/28/24 06:51 Dose: 25 ml Dextrose/Water (Dextrose 50% Syringe 50 Ml) 50 ml IVP PER PROTOCOL PRN; Protocol PRN Reason: Hypoglycemia Last Admin: 09/27/24 06:52 Dose: 50 ml Enoxaparin Sodium (Enoxaparin 40 Mg/0.4 Ml Syringe) 40 mg SQ DAILY [facility] Last Admin: 10/03/24 08:32 Dose: 40 mg Gabapentin (Gabapentin 100 Mg Cap) 200 mg PO DAILY [facility] Last Admin: 10/03/24 08:32 Dose: 200 mg Naloxone HCl (Naloxone 0.4 Mg/Ml 1 Ml Vial) 0.2 mg IV Q2M PRN PRN Reason: Opioid Reversal Oxybutynin Chloride (Oxybutynin 10 Mg Tab.Er.24) 20 mg PO DAILY [facility] Last Admin: 10/03/24 08:32 Dose: 20 mg Pantoprazole Sodium (Pantoprazole 40 Mg Tablet) 40 mg PO DAILY [facility] Last Admin: 10/03/24 08:32 Dose: 40 mg Quetiapine Fumarate (Quetiapine 25 Mg Tab) 25 mg PO [facility] Last Admin: 10/02/24 19:56 Dose: 25 mg Social history: Non-smoker. Alcohol rarely. Currently living with a daughter. Physical examination: VITAL SIGNS: 98.2, 60, 17, 132/81, 100% room air GENERAL: Comfortable, cheerful EYES: Pupils equal. Conjunctiva candido l. HEENT: External appearance of nose and ears normal, oral cavity grossly normal. NECK: JVD not raised; masses not palpable. HEART: First and second heart sounds are normal; no edema. LUNGS: Respiratory rate normal; clear to auscultation. ABDOMEN: Soft, nontender, liver spleen not palpable, no masses palpable. PSYCH: Alert and oriented x3; mood and affect, pleasant. MUSCULOSKELETAL:No Clubbing/cyanosis;muscles-grossly intact. 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 CT brain without contrast: Unremarkable Chest x-ray film personally reviewed by me-possibly chronic changes in base Assessment plan: - Acute metabolic encephalopathy from taking multiple medications. She is not sure how much. Home medication include Zanaflex, Seroquel, Neurontin. 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 Suicide attempt with overdose of multiple medications Social work on the case. Seen by psychiatry. Patient initially was n accepted to inpatient psychiatry. Psychiatry wants the patient to be transferred to [facility]. - Severe hypoglycemia from decreased oral intake: Improved Hypoglycemia protocol. Encourage oral intake Change Nepro supplement to ensure - Chronic low back pain. Patient had lumbar surgery .: Much improved Resume home medications. Stop NSAID because of low normal renal function. Add Tylenol 3. K-pad. - Acute kidney injury likely ATN patient did take overdose of his Celebrex systolic. Resolved Above medications have been held. IV fluids. -No CKD. - Metabolic acidosis from acute kidney injury. Resolved Sodium bicarbonate discontinue -Essential hypertension, blood pressures better,. Hold off TAY inhibitor for now - Hypotension: Much improved Had bilateral LISSETTE stockings thigh-high. Stop midodrine IV fluids -Clinically doubt hypothyroid. TSH is low. Patient has been on for small supplemental Synthroid 25 mcg. DC the same. -Mild cognitive impairment. cognitive linguistic quick test assessment. Administered by speech therapist. Patient's score was as follows: Attention = 3, memory = 4, executive functions = 4, language = 4, visual-spatial skills = 4, clock drawing = 3 [Where 3 equals mild impairment and 4 equals within normal limits]. This will probably qualify as having mild cognitive impairment - GERD PPI - Hyperlipidemia Lipitor Discussed with patient. Past Medical History Past Medical History: Hypertension Additional Past Medical History / Comment(s): High Cholestrol History of Any Multi-Drug Resistant Organisms: None Reported Past Surgical History: Appendectomy, Cholecystectomy, Orthopedic Surgery Additional Past Surgical History / Comment(s): Back surgery - August ( 8 rods placed) Past Psychological History: No Psychological Hx Reported Smoking Status: Never smoker Past Alcohol Use History: Rare Past Drug Use History: None Reported
[2024-10-03] MEDS: ZOLPIDEM 5 MG TAB PO PRN (21:06)
[2024-10-04 05:01] LABS: African American GFR (CKD) 79 (>60 ml/min/1.73 sqM); Anion Gap 5 mmol/L; Blood Urea Nitrogen 16 mg/dL (7-17); Calcium 9.4 mg/dL (8.4-10.2); Carbon Dioxide 30 mmol/L (22-30); Chloride 103 mmol/L (98-107); Glucose 86 mg/dL (74-99); Non-African American GFR(CKD) 69 (>60 ml/min/1.73 sqM); Potassium 4.0 mmol/L (3.5-5.1); Sodium 138 mmol/L (137-145)
[2024-10-04 08:20] VITALS: RESP 16
--- NOTE | 2024-10-04 14:22 | P.PN ---
Progress Note - Text Progress Note Date: 10/04/24 Interval history: Patient was seen today for psychiatric follow-up as requested from primary team. Patients nurse claims the patient has been doing fairly well and not reporting any depression or suicidal thoughts, has been with a one-to-one sitter at her bedside. Patient was seen today sitting in the chair agreeable to speak to consumer loan underwriter. She was fairly bright and cooperative during the interview directable. Claims that she did overdose at home before coming to the hospital and claims that she is deeply sorry. Claims that she is a jehovah's witness person and wants to live for God in her family. Claims that she felt that she was "trapped" living with her daughter and claims that there is a lot of kids in the house and they made her feel claustrophobic. She states that she knows what she did was bad apologize, claims that she would like to stay with her granddaughter instead. States that it is a safer environment for her. She is denying any depression at this time denies any anxiety. She claims that she is sleeping fairly has been taking her Seroquel, denies any anxiety at this time. She denies any issues with appetite. Denies any auditory or visual hallucinations denies any suicidal or homicidal ideations intent or plan. Family Medicine Physician Assistant spoke with patient's granddaughter over the phone Jovana at [phone]. She states that her home environment is safe, she states that patient is welcome to come and stay with her. She denies any guns or weapons in the house. She also claims that she is able to help monitor her medications and set up a pillbox. We went over more safety concerns answered questions about her condition. She also asked about conservatorship and guardianship which will have to be done through the court system. I also informed her that she will be sent home with mental health follow-up resources which is strongly advised to continue on with this for medication management and therapy. MENTAL STATUS EXAM: General Appearance: Patient appears to be thin, sitting in the chair, stated age is alert, pleasant, and cooperative. Behavior: Patient was dressed appropriately in a hospital gown and appeared to be groomed and was cooperative. Speech: Patient's speech is fluent and nonpressured. Mood/Affect: Patient reports their mood is "good", affect is congruent Suicidality/Homicidality: The patient is denying any suicidal thoughts at this time. Denies any homicidal ideations Perceptions: Patient denies any visual hallucinations and denies any auditory hallucinations Though content/process: The patient is currently linear and logical, more future oriented Memory and concentration: AOX3, grossly intact for the purposes of this session Judgment and insight: Improving Diagnosis: Adjustment disorder with depressed mood and conduct PLAN: -At this time patient DOES NOT meet criteria for inpatient psychiatric admission. Patient has been mathew for safety, consumer loan underwriter spoke with patient's granddaughter over the phone who insured patient can stay with her and she will help her monitor her medications or weapons in the house. Patient is currently denying any suicidal or homicidal ideations intent or plan. -Would recommend the following medication changes/additions: Can continue with Seroquel as prescribed. - can discontinue 1:1 sitter for safety at this time -acoustical material worker/case management associate to provide patient with outpatient mental health resources for follow-up. -Please see above for further details regarding the consumer loan underwriter speaking with the patient's granddaughter over the phone for safety planning and discharge plans. -Communicated plan to patient's nurse and case management associate -At this time psychiatry will sign off -Please contact with any questions.
[2024-10-04 15:05] VITALS: BP 160/70; PULSE 56; TEMP 97.7
--- NOTE | 2024-10-04 17:53 | P.DS ---
Providers Date of admission: 10/01/24 07:54 Expected date of discharge: 10/04/24 Attending physician: Julian Alonso Consults: 09/27/24 13:09 Consult Physician Urgent Consulting Provider: Pollo Weir Consult Reason/Comments: suicidal, OD Do you want consulting provider notified?: Yes 09/28/24 13:26 Consult Physician Routine Consulting Provider: Luis Hopkins Consult Reason/Comments: HARI Do you want consulting provider notified?: Yes 09/30/24 16:15 Consult Physician Routine Consulting Provider: Psychiatry - [facility] Consult Reason/Comments: Need to reassess. Pt denies SI. SW won't petition. Do you want consulting provider notified?: Already Contacted Primary care physician: Giovanni Estrada [facility] Course: Chief Complaint: Altered mentation Pleasant 79-year-old patient, follows with Dr. Giovanni Estrada. Chronic medical conditions include hypertension, hypercholesterolemia. Patient also had surgery of the lumbar spine in August of this year. Has pain from the same. Patient was brought into the ER with altered mentation with patient's daughter at the bedside. The daughter provided history to the ER physician that the patient has recently come to live with her. Patient is found to be confused at home in the afternoon. Several pills were spilled all over the ground. Last couple of days some diarrhea was reported with not eating much. Also patient was found to have a glucose of 50. By the EMS. When I started talking to patient she started tearing up and crying. She said she took extra pills on purpose tried to kill herself. She also has discovered apparently that her ex- had a girlfriend for some time. And she does not want to live with the daughter. She knows her options are limited. Patient is oriented and able to give me history. Her lunch was served but she is not much hungry. Denies any fever and chills. Does use a cane. September 28: Sitting up in the bed. Sitter at the bedside. Has been accepted to inpatient unit by psychiatry. I spoke to the patient she is willing to go down. Renal function is worsening. Patient did admit that she had taken her Celebrex including Zestril other pills altogether. Explaining her worsening renal function. She is getting D5 half saline 100 cc an hour. Decreased appetite. Add strict I's and O's. Add Nepro shakes. Blood pressure running low. Add LISSETTE stockings thigh-high and also add midodrine. Patient's TSH is low. Given her overall clinical Evelyn I highly doubt she is hypothyroid. Will DC Synthroid September 29: Doing much better. Eating better. Has a sitter. Psychiatry is looking for her to go to a [facility]. Creatinine much better. Blood pressure better. Patient not tearful today. September 30: Patient had great improvement. Smiling. She feels silly and stupid about what she did with overdose. In fact using a walker she walked the entire round of the hallway. Had half of breakfast and for lunch. As the blood pressure running up. Midodrine is being discontinued. Patient's creatinine is normalized at 0.94. Will also DC bicarbonate October 01. Patient continues to well. Rather cheerful. Pain is very well- controlled. Eating much better. I spoke to Dr. Phoenix from psychiatry.-It is his assessment that patient will still benefit from [facility]. Patient's blood pressure is doing well. October 02: Patient walked twice around the hallway. Eating well. Denies any pain. Patient denies being suicidal. Does not want to hurt herself. She says the problem was her daughter which is not there anymore. She states her granddaughterPari, who has 5 children at home will take her in. And that she had come to visit her today. I did call the patient's granddaughter who is in the 30s. She said she does have a place in the house for her about the patient will moved to her cousins and has a room. She says the patient is her is in [place]. Apparently the patient was in talking to somebody online. And he scammed out of money. Because that some family members broke up with the patient. Her who lives in [place] dropped her off to her daughter's place. As per the granddaughter her mother offered I will be shouting at the patient because of this issue with the person and money. The granddaughter did note that patient is a bit forgetful. Patient has a sitter. Patient had some disturbed sleeping last night because her room door was open. I will have speech therapy come back to evaluate her cognition. At this point patient not making any overt indications of hurting herself or appears depressed. On specifically asking if she wants to kill herself or hurt herself or jump in front of a car etc. Patient denies the same. She states she wants to live take care of herself and take care of her dog. At this point I would hold off doing the Cert, until I am more convinced of the same that it is required and if the best possible option for the patient. In terms of patient being sent to a [facility]. Appreciate input from psychiatry., Also discussed with r older adult social work specialist. Total time spent today about 50 minutes with over 35 minutes of discussion October 03: Patient was seen by speech therapist. They administered the cognitive linguistic quick test assessment. Patient's score was as follows: Attention = 3, memory = 4, executive functions = 4, language = 4, visual-spatial skills = 4, clock drawing = 3 [Where 3 equals mild impairment and 4 equals within normal limits]. This will probably qualify as having mild cognitive impairment Patient remains cheerful. No suicidal ideation. She is looking forward to get discharge. She understands she may have to go [facility] psychiatry unit. Also possibility going to live with her granddaughter. Eating fair. Has a sitter. Ambulating well. With a walker October 04: On the recliner. Cheerful. Seen by psychiatrist Dr. Weir. Patient was cleared to be discharged to the granddaughter's place. Earlier spoke to older adult social work specialist the major case detective. Patient doing well. Tolerating diet. Pain well-controlled. Patient will follow-up with [facility] outpatient. Discussion and discharge planning more than 35 minutes Social history: Non-smoker. Alcohol rarely. Currently living with a daughter. Physical examination: VITAL SIGNS: 98.7, 109, 17, 109 x 64, the 9% room air GENERAL: Comfortable, cheerful EYES: Pupils equal. Conjunctiva candido l. HEENT: External appearance of nose and ears normal, oral cavity grossly normal. NECK: JVD not raised; masses not palpable. HEART: First and second heart sounds are normal; no edema. LUNGS: Respiratory rate normal; clear to auscultation. ABDOMEN: Soft, nontender, liver spleen not palpable, no masses palpable. PSYCH: Alert and oriented x3; mood and affect, pleasant. MUSCULOSKELETAL:No Clubbing/cyanosis;muscles-grossly intact. 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 CT brain without contrast: Unremarkable Chest x-ray film personally reviewed by me-possibly chronic changes in base Assessment plan: - Acute metabolic encephalopathy from taking multiple medications. She is not sure how much. Home medication include Zanaflex, Seroquel, Neurontin. 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 Suicide attempt with overdose of multiple medications: Much improved Social work on the case. Seen by psychiatry. Patient cleared by psychiatry to go to [facility]. - Severe hypoglycemia from decreased oral intake: Improved Hypoglycemia protocol. Encourage oral intake Ensure - Chronic low back pain. Patient had lumbar surgery .: Much improved Resume home medications. Stop NSAID because of low normal renal function. K- pad - Acute kidney injury likely ATN patient did take overdose of his Celebrex systolic. Resolved Above medications have been held. IV fluids. -No CKD. - Metabolic acidosis from acute kidney injury. Resolved Sodium bicarbonate discontinue -Essential hypertension, blood pressures better,. Hold off TAY inhibitor for now - Hypotension: Much improved Had bilateral LISSETTE stockings thigh-high. Stop midodrine IV fluids -Clinically doubt hypothyroid. TSH is low. Patient has been on for small supplemental Synthroid 25 mcg. DC the same. -Mild cognitive impairment. cognitive linguistic quick test assessment. Administered by speech therapist. Patient's score was as follows: Attention = 3, memory = 4, executive functions = 4, language = 4, visual-spatial skills = 4, clock drawing = 3 [Where 3 equals mild impairment and 4 equals within normal limits]. This will probably qualify as having mild cognitive impairment - GERD PPI - Hyperlipidemia Lipitor Disposition: Patient be discharged over to [facility] Past Medical History Past Medical History: Hypertension Additional Past Medical History / Comment(s): High Cholestrol History of Any Multi-Drug Resistant Organisms: None Reported Past Surgical History: Appendectomy, Cholecystectomy, Orthopedic Surgery Additional Past Surgical History / Comment(s): Back surgery - August ( 8 rods placed) Past Psychological History: No Psychological Hx Reported Smoking Status: Never smoker Past Alcohol Use History: Rare Past Drug Use History: None Reported Plan - Discharge Summary New Discharge Prescriptions: New Acetaminophen Tab [Tylenol] 650 mg PO Q6HR PRN tab PRN Reason: Mild Pain Or Fever > 100.5 Midodrine [ProAmatine] 5 mg PO AC-TID tab Continue Oxybutynin ER [Ditropan XL] 20 mg PO DAILY #30 tab Atorvastatin [Lipitor] 20 mg PO HS #30 tab Gabapentin [Neurontin] 200 mg PO DAILY #60 cap Pantoprazole [Protonix] 40 mg PO DAILY #30 tab QUEtiapine [SEROquel] 25 mg PO HS #60 tab tiZANidine [Zanaflex] 4 mg PO BID #60 tab Discontinued hydroCHLOROthiazide [Hydrodiuril] 25 mg PO DAILY Celecoxib [CeleBREX] 100 mg PO BID Levothyroxine Sodium 25 mcg PO DAILY lisinopriL [Zestril] 20 mg PO DAILY Discharge Medication List Acetaminophen Tab [Tylenol] 650 mg PO Q6HR PRN tab 09/29/24 [Rx] Midodrine [ProAmatine] 5 mg PO AC-TID tab 09/29/24 [Rx] Atorvastatin [Lipitor] 20 mg PO HS #30 tab 10/04/24 [Rx] Gabapentin [Neurontin] 200 mg PO DAILY #60 cap 10/04/24 [Rx] Oxybutynin ER [Ditropan XL] 20 mg PO DAILY #30 tab 10/04/24 [Rx] Pantoprazole [Protonix] 40 mg PO DAILY #30 tab 10/04/24 [Rx] QUEtiapine [SEROquel] 25 mg PO HS #60 tab 10/04/24 [Rx] tiZANidine [Zanaflex] 4 mg PO BID #60 tab 10/04/24 [Rx] Follow up Appointment(s)/Referral(s): dr ELANA [Other] - 10 Days Giovanni Estrada MD [Primary Care Provider] - 1-2 days Activity/Diet/Wound Care/Special Instructions: EMANUEL NICHOLS P: [phone] Discharge/Stand Alone Forms: Who Do I Call?, Outpatient Counseling
== END 2024-10-04 18:32 | disposition home or self-care (01) | DRG 917 ==
LOC: EC 18:04 → EEVIPCON 22:56 → 4SSUR 22:56 → OBSVTOIN 10-01 07:54
PROVIDERS: ADMIT Hospitalist; ATTEND Hospitalist
DX: T39.392A Poisoning by other nonsteroidal anti-inflammatory drugs [NSAID], intentional self-harm, initial encounter (principal); G92.8 Other toxic encephalopathy; N17.0 Acute kidney failure with tubular necrosis; I10 Essential (primary) hypertension; F32.9 Major depressive disorder, single episode, unspecified; E03.9 Hypothyroidism, unspecified; E87.20 Acidosis, unspecified; T50.912A Poisoning by multiple unspecified drugs, medicaments and biological substances, intentional self-harm, initial encounter; F43.21 Adjustment disorder with depressed mood; E16.2 Hypoglycemia, unspecified; G89.29 Other chronic pain; M54.50 Low back pain, unspecified; I95.9 Hypotension, unspecified; G31.84 Mild cognitive impairment of uncertain or unknown etiology; K21.9 Gastro-esophageal reflux disease without esophagitis; E78.00 Pure hypercholesterolemia, unspecified; E78.5 Hyperlipidemia, unspecified; Z63.8 Other specified problems related to primary support group; Z79.890 Hormone replacement therapy; Z79.899 Other long term (current) drug therapy; Z79.1 Long term (current) use of non-steroidal anti-inflammatories (NSAID); Z62.898 Other specified problems related to upbringing; Z55.5 Less than a high school diploma
CPT/HCPCS: 36415; 70450; 71046; 76770; 80048; 80053; 80143; 80179; 80306; 80320; 81001; 83735; 84439; 84443; 84484; 85025; 85610; 85730; 87324; 87635; 93005; 94760; 96361; 96374; 99285